=== PATIENT | male | born 1965 | race Caucasian/White ===

== ENCOUNTER → 2017-12-25 15:12 | Outpatient (CLI) | payer OTHER, SELFPAY ==
--- NOTE | 2017-12-25 15:22 | US_ITS ---
US extremity LT limited COMPARISON: None HISTORY: Palpable area on anterior sole of foot TECHNIQUE: Targeted ultrasound over the area of interest FINDINGS: There Is a small oval hypoechoic lesion measuring 0.7 by point to centimeters within the subcutaneous tissues of the foot. Possibly this represents a prominent callus or could represent a small resolving hematoma or seroma. No other abnormalities noted. IMPRESSION: Small hypoechoic lesion as described, if symptoms persist or worsen possibly MRI scan left which be considered
== END ==
PROVIDERS: PCP Family Medicine; Visit Provider Family Medicine
DX: R22.42 Localized swelling, mass and lump, left lower limb (principal)
CPT/HCPCS: 76882

== ENCOUNTER → 2018-01-07 14:28 | Outpatient (CLI) | payer OTHER, SELFPAY | PROVIDERS: PCP Family Medicine; Visit Provider Family Medicine | DX: R22.42 Localized swelling, mass and lump, left lower limb (principal) ==

== ENCOUNTER → 2018-01-27 07:01 | Outpatient (CLI) | payer OTHER, SELFPAY ==
[2018-01-27 14:07] LABS: Alanine Aminotransferase 32 U/L (12-78); Albumin Level 4.2 gm/dL (3.4-5.0); Alkaline Phosphatase 115 U/L (46-116); Aspartate Amino Transferase 12 U/L (15-37); Bilirubin,Direct 0.1 mg/dL (0.0-0.2); Bilirubin,Indirect 0.4 mg/dL (0.0-0.9); Bilirubin,Total 0.5 mg/dL (0.2-1.0); Chol/HDL Ratio 7.9 (1-3.5); Cholesterol 229 mg/dL (140-200); HDL Cholesterol 29 mg/dL (27-67); Total Protein,Serum 7.7 gm/dL (6.4-8.2)
[2018-01-27 14:14] LABS: Triglycerides 734 mg/dL (30-200)
== END ==
PROVIDERS: Visit Provider Internal Medicine
DX: I25.10 Atherosclerotic heart disease of native coronary artery without angina pectoris (principal); E11.9 Type 2 diabetes mellitus without complications; E78.5 Hyperlipidemia, unspecified; I27.20 Pulmonary hypertension, unspecified
CPT/HCPCS: 36415; 80061; 80076

== ENCOUNTER → 2018-09-07 13:44 | Outpatient (CLI) | payer OTHER, SELFPAY ==
[2018-09-07 15:06] LABS: Basophils # 0.1 K/mm3 (0-0.2); Basophils % 0.6 % (0.1-2.0); Eosinophils # 0.1 K/mm3 (0.0-0.4); Eosinophils % 0.7 % (0.1-12.0); Hematocrit 46.9 % (42.0-52.0); Hemoglobin 15.5 g/dL (14.1-18.0); Lymphocytes % 10.8 % (10-50); Mean Corpuscular HGB Conc 33.1 g/dL (31.8-35.4); Mean Corpuscular Hemoglobin 29.6 pg (27.0-31.2); Mean Corpuscular Volume 89.5 fl (80-94); Mean Platelet Volume 8.2 fl (7.4-10.4); Monocytes # 1.1 K/mm3 (0.1-1.0); Neutrophils # 14.7 K/mm3 (1.8-7.8); Neutrophils % 81.9 % (37.0-80.0); Platelet Count 254 K/mm3 (142-424); Red Blood Count 5.24 M/mm3 (4.60-6.20); Red Cell Distribution Width 13.8 % (11.5-17.5)
[2018-09-07 15:15] LABS: Anion Gap 18.8 mEq/L (5-15); Blood Urea Nitrogen 27 mg/dL (7-18); Calcium 9.2 mg/dL (8.5-10.1); Carbon Dioxide 20 mmol/L (21.0-32.0); Chloride 95 mmol/L (98-107); Creatinine,Serum 1.91 mg/dL (0.70-1.30); Estimated Glomerular Filt Rate 37 ml/min (>60); GFR (African American) 45 ML/MIN (>60); Glucose 233 mg/dL (74-106); MANUAL DIFFERENTIAL MANUAL DIFFERENTIAL (MANUAL DIFF); Potassium 4.8 mmoL/L (3.5-5.1); Sodium 129 mmol/L (136-145)
[2018-09-07 19:33] LABS: Lymphocytes % 11 % (10-50); Monocytes % 11 % (2-9); Neutrophils % 78 % (42-76); Platelet Estimate Normal; RBC Morphology Normal; Total Cells Counted 100
== END ==
PROVIDERS: Visit Provider Surgery
DX: L05.91 Pilonidal cyst without abscess (principal)
CPT/HCPCS: 36415; 80048; 85007; 85025; 93005

== ENCOUNTER 2018-09-10 08:56 | Outpatient (CLI) | payer OTHER, SELFPAY | END 2018-09-10 09:15 | disposition home or self-care (01) | LOC: INF 08:56 | PROVIDERS: Visit Provider Surgery | DX: Z48.01 Encounter for change or removal of surgical wound dressing (principal); L05.01 Pilonidal cyst with abscess | CPT/HCPCS: G0463 ==

== ENCOUNTER 2018-09-11 08:13 | Outpatient (CLI) | payer OTHER, SELFPAY ==
[2018-09-11 08:29] VITALS: BP 88/64; PULSE 71; RESP 16; O2SAT 97; BMI 24.3
== END 2018-09-11 08:50 | disposition home or self-care (01) ==
LOC: INF 08:14
PROVIDERS: PCP Family Medicine; Visit Provider Surgery
DX: Z48.01 Encounter for change or removal of surgical wound dressing (principal); L05.01 Pilonidal cyst with abscess
CPT/HCPCS: G0463

== ENCOUNTER → 2018-11-08 16:08 | Outpatient (CLI) | payer OTHER, SELFPAY ==
--- NOTE | 2018-11-08 16:20 | XR_ITS ---
EXAM: XR lumbar spine 6V w bending HISTORY: Low back pain ORDERING PHYSICIAN: Michael Stokes MD PATIENT AGE: 52 years COMPARISON: None FINDINGS: There is overall normal lordotic curvature. There are defects of the pars interarticularis at the L5-S1 level bilaterally. There is a second degree spondylolisthesis of L5 on S1 with a couple millimeters of forward motion of L5 on S1 on the flexion view compared with the extension view. All lumbar vertebrae appear intact and disc spaces are well maintained throughout. There is minimal anterior ossific spurring at the L1-2 level. SI joints are normal. There is minimal scattered arteriosclerotic calcification of the abdominal aorta. IMPRESSION: Bilateral spondylolysis L5-S1 with second degree spondylolisthesis of L5 on S1 with slight motion demonstrated on the flexion and extension views of L5 on S1.
== END ==
PROVIDERS: PCP Family Medicine; Visit Provider Family Medicine
DX: M54.16 Radiculopathy, lumbar region (principal)
CPT/HCPCS: 72114

== ENCOUNTER → 2019-01-19 07:38 | Outpatient (CLI) | payer OTHER, SELFPAY ==
--- NOTE | 2019-01-19 07:48 | MR_ITS ---
MR lumbar spine wo con, MR 3-d myelogram/MRCP HISTORY: Bilateral leg and feet pain 6-8 months. PT states the main pain is in both calf area. Pain when standing or walking long periods. . ITS.REASON: LUMBAR RADICULOPATHY ORDERING PHYSICIAN: Michael Stokes MD PATIENT AGE: 53 years Comparison: X-RAY 11/08/18. TECHNIQUE: Standard multiplanar multiecho sequences are performed without contrast. 3-D MIP and myelographic images are also rendered and reviewed FINDINGS: The spinal cord ends at the L1 level. Multilevel degenerative disc disease is present. T11-T12, T12-L1, and L1-L2 shows mild endplate irregularity with Schmorl's nodes. There is mild bulging of the disc at L1-L2 L2-L3: Unremarkable. L3-L4: Unremarkable. L4-5: Minimal bulging disc. L5-S1: There is grade 1 spondylitic spondylolisthesis of L5 on S1 of 10 mm with degenerative disc disease and bulging disc at that level with moderate bilateral foraminal narrowing facet hypertrophic change. No disc herniation or canal stenosis. IMPRESSION: 1. There is grade 1 spondylitic spondylolisthesis of L5 on S1 of 10 mm with degenerative disc disease and bulging disc at that level with moderate bilateral foraminal narrowing with facet hypertrophic change 2. Lumbar spondylosis. Please see above for detailed description at each level
== END ==
PROVIDERS: PCP Family Medicine; Visit Provider Family Medicine
DX: M54.16 Radiculopathy, lumbar region (principal)
CPT/HCPCS: 72148; 76376

== ENCOUNTER → 2020-02-17 12:44 | Outpatient (CLI) | payer OTHER, SELFPAY ==
--- NOTE | 2020-02-17 13:07 | XR_ITS ---
PROCEDURE: XR ACUTE ABDOMEN SERIES CLINICAL INDICATION: ABD DISTENTION,RLQ PAIN COMPARISON: CXR CHEST(2 VIEWS-NOT PORTABLE) from 02/24/2017 FINDINGS: There is an atelectatic like infiltrate or linear scar within the right upper lobe. Left lung field, cardiac silhouette, soft tissues, and bony structures are unremarkable. There are no abnormal masses or calcifications. Bowel gas pattern is unremarkable. Vascular calcifications are noted. There is no free air. IMPRESSION: Scar or linear atelectasis within the right upper lobe, unremarkable bowel gas pattern Dictated by: Christian Niño 02/17/2020 13:35 Electronically signed by Christian Niño in [place] 02/17/2020 13:35
[2020-02-17 13:18] LABS: Basophils # 0.2 K/mm3 (0-0.2); Lymphocytes # 3.4 K/mm3 (0.7-4.5)
[2020-02-17 14:00] LABS: Chloride 104 mmol/L (98-107); Potassium 4.7 mmoL/L (3.5-5.1); Sodium 133 mmol/L (136-145)
[2020-02-17 14:02] LABS: Amylase 39 U/L (30-110)
[2020-02-17 14:03] LABS: Alanine Aminotransferase 26 U/L (12-78); Alkaline Phosphatase 73 U/L (38-126); Anion Gap 11.7 mEq/L (5-15); Aspartate Amino Transferase 28 U/L (17-59); Bilirubin,Total 0.7 mg/dl (0.2-1.3); Blood Urea Nitrogen 15 mg/dl (9-20); Calcium 9.4 mg/dl (8.4-10.2); Carbon Dioxide 22 mmol/L (22.0-30.0); Estimated Glomerular Filt Rate 53 ml/min (>60); GFR (African American) 64 ML/MIN (>60); Glucose 117 mg/dl (74-100); Lipase 100 U/L (23-300)
[2020-02-17 14:04] LABS: Albumin Level 4.1 g/dl (3.5-5.0); Albumin/Globulin Ratio 1.4 (1.1-1.8); Globulin 2.9 g/dL (1.3-3.2)
[2020-02-17 14:17] LABS: Basophils % 1.1 % (0.1-2.0); Eosinophils % 6.7 % (0.1-12.0); Lymphocytes % 22.8 % (10-50); Mean Corpuscular HGB Conc 34.8 g/dL (31.8-35.4); Mean Corpuscular Hemoglobin 30.4 pg (27.0-31.2); Mean Corpuscular Volume 87.5 fl (80-94); Mean Platelet Volume 8.3 fl (7.4-10.4); Monocytes # 1.3 K/mm3 (0.1-1.0); Monocytes % 8.7 % (1.7-9.3); Neutrophils # 9.1 K/mm3 (1.8-7.8); Neutrophils % 60.8 % (37.0-80.0); Platelet Count 225 K/mm3 (142-424); Red Blood Count 6.06 M/mm3 (4.60-6.20); Red Cell Distribution Width 13.7 % (11.5-17.5)
[2020-02-17 14:18] LABS: Hemoglobin 18.4 g/dL (14.1-18.0)
[2020-02-17 14:20] LABS: MANUAL DIFFERENTIAL MANUAL DIFFERENTIAL (MANUAL DIFF)
[2020-02-17 14:57] LABS: Eosinophils % 6 % (0-3); Lymphocytes % 29 % (10-50); Monocytes % 9 % (2-9); Neutrophils % 56 % (42-76); Total Cells Counted 100
[2020-02-17 14:58] LABS: Platelet Estimate Normal; RBC Morphology Normal
== END ==
PROVIDERS: Visit Provider Family Medicine
DX: R10.31 Right lower quadrant pain (principal); R14.0 Abdominal distension (gaseous)
CPT/HCPCS: 36415; 74021; 80053; 82150; 83690; 85007; 85025

== ENCOUNTER → 2020-02-27 07:41 | Outpatient (CLI) | payer OTHER, SELFPAY ==
--- NOTE | 2020-02-27 | US_ITS ---
PROCEDURE: US ABDOMEN COMPLETE CLINICAL INDICATION: ABDOMINAL DISTENSION Abdominal distension with nausea and vomiting COMPARISON: No exams were available for comparison FINDINGS: PANCREAS: Unremarkable. No obvious mass or abnormal fluid collection. No ductal dilatation LIVER: Increased echogenicity of the liver suggesting hepatic steatosis. No focal liver lesion. There is appropriate direction of blood flow within non dilated portal vein. RIGHT KIDNEY: Unremarkable. Normal size and echogenicity. No hydronephrosis LEFT KIDNEY: There is a small exophytic cyst along the upper pole of the left kidney at 15 mm GALLBLADDER: No gallstones, gallbladder wall thickening, pericholecystic fluid, or biliary dilatation. AORTA: No evidence of aneurysmal dilatation. SPLEEN: Unremarkable. Normal size and echogenicity ASCITES: None demonstrated. IMPRESSION: Fatty liver. Small left renal cyst Otherwise negative Dictated by: Nelson Gomes MD 02/27/2020 16:07 Electronically signed by Nelson Gomes MD in [facility] 02/27/2020 16:07
== END ==
PROVIDERS: PCP Family Medicine; Visit Provider Family Medicine
DX: R14.0 Abdominal distension (gaseous) (principal)
CPT/HCPCS: 76700

== ENCOUNTER → 2020-06-28 10:33 | Outpatient (CLI) | payer OTHER, SELFPAY ==
--- NOTE | 2020-06-28 10:37 | US_ITS ---
APPROVED REPORT Exam Type: Ankle to Brachial Index Bakery Sales Clerk: Erum Fragoso RT(R) Indications Claudication: Bilaterally Pulselessness Current Smoker CAD Risk Factors Hypertension Hyperlipidemia Diabetes Current Smoker Pressures/Indices Right Indices Left Indices Brachial 122.00 mmHg Brachial 119.00 mmHg Low Thigh 202.00 mmHg 1.66 Low Thigh 113.00 mmHg 0.93 Calf 110.00 mmHg 0.90 Calf 94.00 mmHg 0.77 Ankle(PT) 128.00 mmHg 1.05 Ankle(PT) 89.00 mmHg 0.73 Ankle(DP) 118.00 mmHg 0.97 Ankle(DP) 84.00 mmHg 0.69 Digit 73.00 mmHg 0.60 Digit 56.00 mmHg 0.46 Findings RT JOSE=1.1 LT JOSE=0.7 RT TBI=0.6 LT TBI=0.5 Abnormal waveforms LLE Diminished pulses LLE Conclusion RT JOSE=1.1 LT JOSE=0.7 RT TBI=0.6 LT TBI=0.5 Abnormal waveforms LLE Diminished pulses LLE Moderate arterial disease on the left Electronically signed by : Nelson Gomes MD 06/28/2020 15:56:27
== END ==
PROVIDERS: PCP Family Medicine; Visit Provider Family Medicine
DX: I73.9 Peripheral vascular disease, unspecified (principal); I65.23 Occlusion and stenosis of bilateral carotid arteries; E11.65 Type 2 diabetes mellitus with hyperglycemia; F17.210 Nicotine dependence, cigarettes, uncomplicated; Z79.84 Long term (current) use of oral hypoglycemic drugs
CPT/HCPCS: 93923

== ENCOUNTER 2021-09-22 18:11 | Emergency (ER) | payer OTHER, SELFPAY ==
[2021-09-22] VITALS (7 sets, daily range): BP systolic 94–111; BP diastolic 66–78; PULSE 73–106; RESP 15–16; TEMP 36.8; O2SAT 93–100; BMI 23.6
--- NOTE | 2021-09-22 18:27 | PC.NURSE ---
Covid Swab collected and sent to the lab
[2021-09-22 18:46] LABS: Coronavirus 19, PCR Not Detected (NotDetected); Influenza A, PCR Not Detected (NotDetected); Influenza B, PCR Not Detected (NotDetected)
--- NOTE | 2021-09-22 18:53 | HMH.EDGENADL ---
ED Disposition Clinical Impression: Upper respiratory infection Qualifiers: URI type: unspecified URI Qualified Code(s): J06.9 - Acute upper respiratory infection, unspecified Nausea & vomiting Qualifiers: Vomiting type: unspecified Qualified Code(s): R11.2 - Nausea with vomiting, unspecified Disposition: Home, Self-Care Condition on Discharge: Good Instructions: DI for Acute Bronchitis Additional Instructions: Please continue supportive care at home including Tylenol, ibuprofen and Zofran for nausea/vomiting. Continue to drink plenty of fluids. If your condition worsens or any concerning symptoms arise, please return to the emergency department for reassessment. Otherwise, please follow-up with your doctor next week. Referrals: Michael Stokes MD [Primary Care Provider] - - Critical Care Critical Care Time: No Attestation: On 09/22/21, the high probability of a clinically significant, sudden or life threatening deterioration of the following system(s) required my full and direct attention, intervention and personal management. The time I documented below is in addition to time spent performing reported procedures but includes the following listed in this critical care notation. Medical Decision Making - Medical Records Medical records reviewed: Yes: I reviewed the patient's medical records. - Javier Inquiry Pt receiving controlled substance: No Vital Signs: 09/22/21 18:11 09/22/21 19:57 09/22/21 19:58 Temperature 98.2 F Temperature Source Oral Pulse Rate 83 83 Pulse Rate [Right Radial] 106 H Respiratory Rate 15 Blood Pressure [Right Arm] 111/78 Blood Pressure Mean [Right Arm] 89 Blood Pressure Source [Right Arm] Automatic Cuff Blood Pressure Position [Right Arm] Sitting 02 Sat by Pulse Oximetry 100 Oxygen Delivery Method Room Air - Lab Data Lab results reviewed: Yes: I reviewed the patient's lab results. Lab Results 09/22/21 18:21: SARS-CoV-2 (PCR) Not detected, Influenza A Untype (PCR) Not detected, Influenza Type B (PCR) Not detected 09/22/21 19:42: WBC 10.1, RBC 6.10, Hgb 17.5, Hct 54.1 H, MCV 88.7, MCH 28.7, MCHC 32.4, RDW 13.5, Plt Count 244, MPV 8.6, Neut % (Auto) 56.2, Lymph % (Auto) 27.0, [place] % (Auto) 9.1, Eos % (Auto) 5.5, Baso % (Auto) 2.2 H, Neut # (Auto) 5.7, Lymph # (Auto) 2.7, [place] # (Auto) 0.9, Eos # (Auto) 0.6 H, Baso # (Auto) 0.2 09/22/21 19:42: Sodium 132 L, Potassium 4.4, Chloride 99, Carbon Dioxide 23, Anion Gap 14.4, BUN 17, Creatinine 1.40 H, Estimated Creat Clear 54, Estimated GFR 52 L, Est GFR ( Amer) 63, Glucose 118 H, Calcium 10.2, Total Bilirubin 0.6, AST 22, ALT 15, Alkaline Phosphatase 70, Total Protein 7.6, Albumin 4.1, Globulin 3.5 H, Albumin/Globulin Ratio 1.2 09/22/21 19:42: Lactate 1.0 Result diagrams: 09/22/21 19:42 09/22/21 19:42 Orders (Tests/Meds): ED MEDICATIONS Generic Name Dose Route Start Last Admin Trade Name Freq PRN Reason Stop Dose Admin Lactated Ringer's 500 mls @ 999 mls/hr 09/22/21 19:00 09/22/21 19:34 Lactated Ringer's 1000 Ml Bag IV 09/22/21 19:30 999 mls/hr .Q31M BRITT Administration Discontinued Medications Generic Name Dose Route Start Last Admin Trade Name Freq PRN Reason Stop Dose Admin Albuterol/Ipratropium 3 ml 09/22/21 19:42 09/22/21 19:57 Ipratropium/Albuterol 3 Ml Neb 09/22/21 19:43 3 ml ONCE ONE Administration Ondansetron HCl 4 mg 09/22/21 19:00 09/22/21 19:34 Ondansetron 4mg/2ml Vial IV 09/22/21 19:01 4 mg ONCE ONE Administration Medical Decision Narrative: Chris is a 55-year-old male presenting with a chief complaint of congestion, intermittent headache at home, nausea, vomiting and abdominal cramping. Differential diagnosis includes, but is not limited to, COVID-19, influenza, viral gastroenteritis, COPD exacerbation, other. On initial exam, patient is hemodynamically stable but mildly tachycardic. He has SPO2 saturations of 100% on room air and
[2021-09-22 19:59] LABS: Chloride 99 mmol/L (98-107); Potassium 4.4 mmoL/L (3.5-5.1); Sodium 132 mmol/L (136-145)
[2021-09-22 20:02] LABS: Alanine Aminotransferase 15 U/L (12-78); Albumin Level 4.1 g/dl (3.5-5.0); Albumin/Globulin Ratio 1.2 (1.1-1.8); Alkaline Phosphatase 70 U/L (38-126); Anion Gap 14.4 mEq/L (5-15); Aspartate Amino Transferase 22 U/L (17-59); Bilirubin,Total 0.6 mg/dl (0.2-1.3); Blood Urea Nitrogen 17 mg/dl (9-20); Calcium 10.2 mg/dl (8.4-10.2); Carbon Dioxide 23 mmol/L (22.0-30.0); Creatinine Clearance Estimated 54 mL/min (50-200); Estimated Glomerular Filt Rate 52 ml/min (>60); GFR (African American) 63 ML/MIN (>60); Globulin 3.5 g/dL (1.3-3.2); Glucose 118 mg/dl (74-100); Total Protein,Serum 7.6 g/dl (6.3-8.2)
[2021-09-22 20:04] LABS: Basophils # 0.2 K/mm3 (0-0.2); Basophils % 2.2 % (0.1-2.0); Eosinophils # 0.6 K/mm3 (0.0-0.4); Eosinophils % 5.5 % (0.1-12.0); Hematocrit 54.1 % (42.0-52.0); Hemoglobin 17.5 g/dL (14.1-18.0); Lymphocytes # 2.7 K/mm3 (0.7-4.5); Mean Corpuscular HGB Conc 32.4 g/dL (31.8-35.4); Mean Corpuscular Hemoglobin 28.7 pg (27.0-31.2); Mean Corpuscular Volume 88.7 fl (80-94); Mean Platelet Volume 8.6 fl (7.4-10.4); Monocytes # 0.9 K/mm3 (0.1-1.0); Monocytes % 9.1 % (1.7-9.3); Neutrophils # 5.7 K/mm3 (1.8-7.8); Neutrophils % 56.2 % (37.0-80.0); Platelet Count 244 K/mm3 (142-424); Red Cell Distribution Width 13.5 % (11.5-17.5); White Blood Count 10.1 K/mm3 (4.8-10.8)
== END 2021-09-22 20:52 | disposition home or self-care (01) ==
PROVIDERS: Emergency Provider Emergency Medicine; PCP Family Medicine
DX: U07.1 COVID-19 (principal); J06.9 Acute upper respiratory infection, unspecified; I25.10 Atherosclerotic heart disease of native coronary artery without angina pectoris; E11.9 Type 2 diabetes mellitus without complications; K21.9 Gastro-esophageal reflux disease without esophagitis; E78.5 Hyperlipidemia, unspecified; I10 Essential (primary) hypertension; F17.210 Nicotine dependence, cigarettes, uncomplicated
CPT/HCPCS: 80053; 83605; 85025; 96365; 99283; C9803; J2405; U0003; U0005

== ENCOUNTER → 2021-09-24 16:47 | Outpatient (CLI) | payer OTHER, SELFPAY ==
[2021-09-24 17:39] LABS: Theophylline 5.3 ug/ml (10-20)
== END ==
PROVIDERS: PCP Internal Medicine; Visit Provider Internal Medicine
DX: J06.9 Acute upper respiratory infection, unspecified (principal)
CPT/HCPCS: 80198

== ENCOUNTER → 2021-11-12 15:36 | Outpatient (CLI) | payer OTHER, SELFPAY ==
--- NOTE | 2021-11-12 15:46 | ECG_ITS ---
APPROVED REPORT Exam: Resting ECG HR:83 bpm ECG Measurements Heart Rate 83 AXES VA 140 P 66 QRSd 102 QRS 75 QT 333 T 75 QTc 373 Conclusion SINUS RHYTHM NORMAL ECG Electronically signed by : Camden Hernandez MD 12/09/2021 16:10:10
== END ==
PROVIDERS: PCP Internal Medicine; Visit Provider Internal Medicine
DX: I25.10 Atherosclerotic heart disease of native coronary artery without angina pectoris (principal); E11.59 Type 2 diabetes mellitus with other circulatory complications; Z79.84 Long term (current) use of oral hypoglycemic drugs
CPT/HCPCS: 93005

== ENCOUNTER → 2021-11-20 08:10 | Outpatient (CLI) | payer OTHER, SELFPAY ==
--- NOTE | 2021-11-20 08:13 | CT_ITS ---
FINAL REPORT CLINICAL HISTORY: . nicotine dependence, 1 1/2 packs a day for 27 to 28 years COMPARISON: April 09, 2017 FINDINGS: Low-Dose Chest CT CTDI vol (mGy): 2.90 DLP (mGy-cm): 98.73 Axial images were obtained from the lung apex to the mid abdomen by computed tomography. Low-dose protocol was utilized. FINDINGS: CHEST: There is no axillary adenopathy. There is no hilar or mediastinal adenopathy. The heart is proper size. There is a 4.2 cm ascending aortic aneurysm which is stable. Note is made of mild gynecomastia. There is no pericardial or pleural effusion. Limited images of the upper abdomen are unremarkable. Lung window images demonstrate mild scarring. There is calcified granuloma in the right lung base. There is a 2 mm nodule in the right upper lobe, well seen on image 28. There is a stable 2 mm left upper lobe nodule, well seen on image 17. There is a 3 mm nodule at the minor fissure which is likely an intra fissural lymph node. There is a stable 2 mm left lower lobe nodule, well seen on image 56. IMPRESSION: Bilateral pulmonary nodules as described. Lung RADS category 2. Recommend 12 month follow-up low-dose chest CT. Reviewed, Interpreted and Dictated by Derian Randle III, MD Transcribed by Fany Hamilton Authenticated by Derian Randle III, MD on 11/20/2021 10:45:06 AM [facility]
== END ==
PROVIDERS: PCP Internal Medicine; Visit Provider Internal Medicine
DX: Z87.891 Personal history of nicotine dependence (principal); Z12.2 Encounter for screening for malignant neoplasm of respiratory organs
CPT/HCPCS: 71271

== ENCOUNTER → 2021-11-21 07:12 | Outpatient (CLI) | payer OTHER, SELFPAY ==
--- NOTE | 2021-11-21 | CA_ITS ---
APPROVED REPORT Exam: Pharmacologic Technologist: Sri Louis, Ht: 5 ft 5 in Wt: 137 lbs BSA: 1.68 m2 HR: 88 bpm BP: 89/57 mmHg Rhythm: NSR, SLOW R WAVE PROGRESSION Medical History Medical History: HTN, Hyperlipidemia, Diabetes Medications: Aspirin,,,,, Gabapentin,,,,, Carvedilol,,,,, Glipizide,,,,, Duoneb,,,,, Albuterol,,,,, Theophylline,,,,, Prednisone,,,,, SpirOnALACTONE,,,,, Trelegy,,,,, EMpagliflozin,,,,, Allergies: PENICILLIN Cardiac Risk Factors: HTN, Hyperlipidemia, Diabetes , Smoking Stress Test Details Test: LEXISCAN HR Resting HR: 84 bpm Max Heart Rate (APMHR): 164.119626 bpm Max HR Achieved: 99 bpm Target HR (85% APMHR): 139.171835 bpm % of APMHR: 60.37 Recovery HR: 85 bpm BP Resting BP: 97/66 mmHg Max BP: 100/60 mmHg Recovery BP: 100.0/60.0 mmHg ECG Resting ECG: NSR, SLOW R WAVE PROGRESSION Clinical Exercise duration: 04:01 min Highest Stage Achieved: Stress ECG Conclusion PT HAD SOA, HEAD DISCOMFORT, MILD NAUSEA. NO CP. BRIEF BRADYCARDIA WITH INJECTION. RARE PVC. NO SIGNIFICANT CHANGES. UNREMARKABLE LEXISCAN STRESS. MYOVIEW IMAGES REPORTED SEPARATELY. Test Summary RECOVERY 03:32 . . 87 . 100/ 60 . . Stage 1 01:00 . . 89 . . . . Stage 2 01:00 . . 98 . 98/ 65 . . Stage 3 01:00 . . 95 . 90/ 64 . . Stage 4 01:00 . . 90 . 85/ 61 . . Stage 4 01:01 . . 90 . 85/ 61 . Stop exercise at 04:01 RECOVERY 01:00 . . 93 . 84/ 58 . . RECOVERY 02:00 . . 88 . 90/ 62 . . RECOVERY 03:00 . . 89 . 100/ 60 . . RECOVERY 03:32 . . 87 . 100/ 60 . . Electronically signed by : Jeffery Tinsley MD 11/22/2021 13:29:10
--- NOTE | 2021-11-21 07:12 | NM_ITS ---
APPROVED REPORT Exam: Nuclear Stress Test Indication: short of breath Patient Location: Outpatient Stress Tech: Sri Louis ME Tech:Esther Randolph RAPHAEL RT(R)(N) Ht: 5 ft 5 in Wt: 145 lbs HR: 88 bpm BP: 89/57 mmHg BSA: 1.73 m2 BMI: 24.1 Procedure: Patient received a 0.4 mg of intravenous Lexiscan, resting heart rate 88 bpm, resting blood pressure 89/57 mmHg, with Lexiscan maximum heart rate achived was 98 bpm which is Less than 85 % of the maximum predicted heart rate and blood pressure was 98/65 mmHg. With Lexiscan, patient denied any complaint of chest pain. Electrocardiogram Resting electrocardiogram shows sinus rhythm, with Lexiscan there is less than 1.[address] segment depression noted from the baseline EKG. The EKG portion of the Lexiscan is nondiagnostic. Cardiac Stress and Resting SPECT Images: Cardiac Stress and Resting SPECT images were obtained using technetium 99m Myoview 30.9 mCi stress and 10.96 mCi at rest. Gated SPECT analysis of segmental wall motion and calculation of the ejection fraction also done. Prone images were also obtained. Cardiac stress and resting SPECT images show uniform myocardial activity without segmental perfusion abnormality, computer derived ejection fraction is 54% with no regional wall motion abnormality, right ventricle is normal size and contractility. Conclusion: 1. The EKG portion of the Lexiscan is nondiagnostic. 2. No scintigraphic evidence of reversible ischemia seen, compared to ejection fraction 54% with no regional wall motion abnormality, right ventricle is normal size and contractility. 3. Normal Lexiscan Myoview study. Electronically signed by : Jeffery Tinsley MD 11/22/2021 13:31:44
--- NOTE | 2021-11-21 08:55 | CA_ITS ---
APPROVED REPORT EXAM: Comprehensive 2D, Doppler, and color-flow Echocardiogram Mechanical Systems Control Engineer: Elizabeth Giraldo RVT Ht: 5 ft 5 in Wt: 137lbs BSA: 1.68 BP: 99/72 mmHg Indications: soa,dd,phtn,cad,chf,gerd,copd,dm,htn,hld 2D Dimensions LVOT 2.34 cm (M/F) 1.5-2.5 LA Volume 11.30 mL LA Volume Index 6.72 mL/m2 (M/F) 16-34 M-Mode Dimensions RVDd 2.01 cm (0.9-2.6) LA Diam 3.51 cm (1.9-4.0) LVDd 5.01 cm (3.5-5.7) Ao Diam 2.52 cm (2.0-3.7) LVDs 3.15 cm (3.5-5.7) IVSd 0.64 cm (0.6-1.1) PWd 0.76 cm (0.6-1.1) EF (Teich) 66.80% FS 37.10% EDV (Teich) 118.80 mL TAPSE 1.14 (<1.7) ESV (Teich) 39.40 mL LV Diastology E Decel Time 150.00 (160-240 msec) E/A Ratio 0.8 MED E' 6.00 (< 7 cm/sec) E'/MED E' Ratio 9.72 (>14) LAT E' 8.30 (<10 cm/sec) E/LAT E' Ratio 7.02 (>14) Aortic Valve LVOT Max 84.00 (70-110 cm/s) LVOT VTI 16.19 cm AoV Peak Jose Antonio. 178.00 (50-130 cm/s) AO Peak GR. 14.30 mmHg AO Mean GR. 7.90 (<5 mmHg) AO VTI 34.87 (18-25 cm) NADIA (VTI) 2.00 (2.5-4.5 cm2) Mitral Valve MV E Max Jose Antonio. 58.00 (40-130 cm/s) MV A Velocity 70.00 (40-130 cm/s) E/A Ratio 0.83 MV Decel. Time 150.00 (160-240 ms) MV PHT 44.00 ms Pulmonary Valve PV Peak Velocity 69.00 (50-150 cm/s) Left Ventricle Left atrium is mildly enlarged, left ventricle is normal size, mild concentric left ventricular hypertrophy, estimated ejection fraction 55% with no regional wall motion abnormality, grade 1 diastolic dysfunction seen without tissue Doppler evidence of raise left atrial pressure. Right Ventricle Right atrium and right ventricle are normal size and contractility. Aortic Valve Aortic valve is thickened and calcified leaflet mobility is not well visualized, degree of aortic stenosis is difficult to calculate from the study. There is no significant aortic insufficiency. Aortic stenosis appears to be mild. Mitral Valve Mitral valve leaflets are minimally thickened, there is mild mitral regurgitation. Tricuspid Valve Tricuspid grossly normal, there is mild tricuspid regurgitation, tricuspid regurgitation jet velocity is inadequate for calculation of the right ventricular systolic pressure. Pulmonic Valve Pulmonic valve is poorly visualized. Great Vessels Aortic root appears to be mildly enlarged. Inferior vena cava is poorly visualized. Pericardium No significant pericardial effusion noted. Conclusion 1. Technically difficult study. Normal left ventricular size, mild concentric left ventricular hypertrophy, visually estimated ejection fraction 55% with no regional wall motion abnormality, grade 1 diastolic dysfunction seen without tissue Doppler evidence of raise left atrial pressure. 2. Thickened and calcified aortic valve with degree of aortic stenosis difficulties ascertain from this study is likely mild, there is no significant aortic insufficiency. 3. Mild mitral and tricuspid regurgitation. 4. No significant pericardial effusion noted. 5. Inferior vena cava is poorly visualized. Electronically signed by : Jeffery Tinsley MD 11/22/2021 14:59:29
== END ==
PROVIDERS: PCP Internal Medicine; Visit Provider Physician Assistant
DX: R06.00 Dyspnea, unspecified (principal); I25.10 Atherosclerotic heart disease of native coronary artery without angina pectoris; I27.20 Pulmonary hypertension, unspecified; E11.8 Type 2 diabetes mellitus with unspecified complications; E78.49 Other hyperlipidemia; F17.200 Nicotine dependence, unspecified, uncomplicated; I51.89 Other ill-defined heart diseases
CPT/HCPCS: 78452; 93017; 93306; A9502; J2785

== ENCOUNTER 2022-02-06 10:43 | Emergency (ER) | payer OTHER, SELFPAY ==
[2022-02-06] VITALS (8 sets, daily range): BP systolic 95–107; BP diastolic 55–64; PULSE 80–95; RESP 17–18; TEMP 36.7; O2SAT 88–94; BMI 23.8
--- NOTE | 2022-02-06 10:52 | ECG_ITS ---
APPROVED REPORT Exam: Resting ECG HR:87 bpm ECG Measurements Heart Rate 87 AXES SD 135 P 63 QRSd 94 QRS 83 QT 333 T 62 QTc 378 Conclusion SINUS RHYTHM NORMAL ECG UNCONFIRMED REPORT Electronically signed by : Michael Kenny MD 02/07/2022 17:31:37
--- NOTE | 2022-02-06 10:54 | HMH.EDGENADL ---
ED Disposition Clinical Impression: Pneumonia Qualifiers: Pneumonia type: due to unspecified organism Laterality: right Lung location: upper lobe of lung Qualified Code(s): J18.9 - Pneumonia, unspecified organism Disposition: Home, Self-Care Condition on Discharge: Good Instructions: Pneumonia-Adult Additional Instructions: Take antibiotics as prescribed. Follow up with your PCP as soon as possible. If worsening of symptoms or not seeing improvement after a few days on antibiotics, return to the ED for further evaluation. Referrals: Camden Hernandez MD [Primary Care Provider] - Time of Disposition: 12:44 - Critical Care Critical Care Time: No Attestation: On , the high probability of a clinically significant, sudden or life threatening deterioration of the following system(s) required my full and direct attention, intervention and personal management. The time I documented below is in addition to time spent performing reported procedures but includes the following listed in this critical care notation. Medical Decision Making - Medical Records Medical records reviewed: Yes: I reviewed the patient's medical records. - Javier Inquiry Pt receiving controlled substance: No Vital Signs: 02/06/22 10:44 02/06/22 11:01 02/06/22 11:22 Temperature 98.0 F Temperature Source Oral Pulse Rate 81 Pulse Rate [Right Radial] 95 H Respiratory Rate 18 17 Blood Pressure 104/63 L Blood Pressure [Right Arm] 95/55 L Blood Pressure Mean 77 Blood Pressure Mean [Right Arm] 68 Blood Pressure Source [Right Arm] Automatic Cuff Blood Pressure Position [Right Arm] Sitting 02 Sat by Pulse Oximetry 94 L 88 L 92 L Oxygen Delivery Method Room Air Room Air Nasal Cannula Oxygen Flow Rate (LPM) 2 02/06/22 11:30 02/06/22 12:00 Temperature Temperature Source Pulse Rate 80 80 Pulse Rate [Right Radial] Respiratory Rate 18 18 Blood Pressure 98/60 L 107/64 L Blood Pressure [Right Arm] Blood Pressure Mean 70 80 Blood Pressure Mean [Right Arm] Blood Pressure Source [Right Arm] Blood Pressure Position [Right Arm] 02 Sat by Pulse Oximetry 91 L 91 L Oxygen Delivery Method Nasal Cannula Nasal Cannula Oxygen Flow Rate (LPM) 2 - Lab Data Lab results reviewed: Yes: I reviewed the patient's lab results. Lab Results 02/06/22 11:00: WBC 15.1 H, RBC 5.84, Hgb 17.4, Hct 50.3, MCV 86.2, MCH 29.8, MCHC 34.5, RDW 14.2, Plt Count 233, MPV 8.4, Neut % (Auto) 76.6, Lymph % (Auto) 9.7 L, [place] % (Auto) 6.4, Eos % (Auto) 5.5, Baso % (Auto) 1.8, Neut # (Auto) 11.6 H, Lymph # (Auto) 1.5, [place] # (Auto) 1.0, Eos # (Auto) 0.8 H, Baso # (Auto) 0.3 H, Total Counted 100, Neutrophils % (Manual) 64, Lymphocytes % (Manual) 21, Monocytes % (Manual) 9, Eosinophils % (Manual) 6 H, Platelet Estimate Normal, RBC Morphology Normal 02/06/22 11:00: Sodium 132 L, Potassium 4.7, Chloride 105, Carbon Dioxide 18 L, Anion Gap 13.7, BUN 16, Creatinine 1.30 H, Estimated Creat Clear 58, Estimated GFR 57 L, Est GFR ( Amer) 69, Glucose 255 H, Calcium 9.3, Total Bilirubin 0.7, AST 22, ALT 18, Alkaline Phosphatase 87, Troponin I < 0.01, Total Protein 7.7, Albumin 4.2, Globulin 3.5 H, Albumin/Globulin Ratio 1.2 02/06/22 11:15: SARS-CoV-2 (PCR) Not detected, Influenza A Untype (PCR) Not detected, Influenza Type B (PCR) Not detected Result diagrams: 02/06/22 11:00 02/06/22 11:00 Orders (Tests/Meds): ED MEDICATIONS Generic Name Dose Route Start Last Admin Trade Name Freq PRN Reason Stop Dose Admin Doxycycline Hyclate 100 mg 02/06/22 12:39 Doxycycline Hycl 100 Mg Tablet PO 02/06/22 12:40 ONCE ONE Sodium Chloride 10 ml 02/06/22 11:00 Sodium Chloride 0.9% 10ml Flush Syringe IV 03/08/22 10:59 NEEDED PRN Maintain IV Site Discontinued Medications Generic Name Dose Route Start Last Admin Trade Name Freq PRN Reason Stop Dose Admin Albuterol/Ipratropium 3 ml 02/06/22 11:08 02/06/22 11:21 Ipratropium/Albuter
--- NOTE | 2022-02-06 11:02 | PC.NURSE ---
NUBIA MALDONADO at
--- NOTE | 2022-02-06 11:02 | PC.NURSE ---
NUBIA MALDONADO at
--- NOTE | 2022-02-06 11:07 | XR_ITS ---
FINAL REPORT CLINICAL HISTORY: SOB, weakness, pt states that he slept from Thursday night to Thursday night which is uncommon for him. FINDINGS: Two views of the chest were obtained. The heart size and pulmonary vascularity are within normal limits. The mediastinum is normal. There is focal opacity in the right mid lung. There is no pneumothorax. The bony thorax is intact. IMPRESSION: Focal opacity in the right mid lung may represent atelectasis or pneumonia adjacent to the minor fissure. Follow-up radiographs may be helpful. Reviewed, Interpreted and Dictated by Derian Randle III, MD Transcribed by Gus Davis Authenticated and [facility]
[2022-02-06 11:08] LABS: Basophils # 0.3 K/mm3 (0-0.2); Basophils % 1.8 % (0.1-2.0); Eosinophils # 0.8 K/mm3 (0.0-0.4); Eosinophils % 5.5 % (0.1-12.0); Hematocrit 50.3 % (42.0-52.0); Hemoglobin 17.4 g/dL (14.1-18.0); Lymphocytes # 1.5 K/mm3 (0.7-4.5); Lymphocytes % 9.7 % (10-50); Mean Corpuscular HGB Conc 34.5 g/dL (31.8-35.4); Mean Corpuscular Hemoglobin 29.8 pg (27.0-31.2); Mean Corpuscular Volume 86.2 fl (80-94); Mean Platelet Volume 8.4 fl (7.4-10.4); Monocytes % 6.4 % (1.7-9.3); Neutrophils # 11.6 K/mm3 (1.8-7.8); Neutrophils % 76.6 % (37.0-80.0); Platelet Count 233 K/mm3 (142-424); Red Blood Count 5.84 M/mm3 (4.60-6.20); Red Cell Distribution Width 14.2 % (11.5-17.5); White Blood Count 15.1 K/mm3 (4.8-10.8)
[2022-02-06 11:10] LABS: MANUAL DIFFERENTIAL MANUAL DIFFERENTIAL (MANUAL DIFF)
[2022-02-06 11:14] LABS: Chloride 105 mmol/L (98-107); Potassium 4.7 mmoL/L (3.5-5.1); Sodium 132 mmol/L (136-145)
[2022-02-06 11:17] LABS: Alanine Aminotransferase 18 U/L (12-78); Albumin Level 4.2 g/dl (3.5-5.0); Albumin/Globulin Ratio 1.2 (1.1-1.8); Alkaline Phosphatase 87 U/L (38-126); Anion Gap 13.7 mEq/L (5-15); Aspartate Amino Transferase 22 U/L (17-59); Bilirubin,Total 0.7 mg/dl (0.2-1.3); Blood Urea Nitrogen 16 mg/dl (9-20); Carbon Dioxide 18 mmol/L (22.0-30.0); Creatinine Clearance Estimated 58 mL/min (50-200); Estimated Glomerular Filt Rate 57 ml/min (>60); GFR (African American) 69 ML/MIN (>60); Globulin 3.5 g/dL (1.3-3.2); Total Protein,Serum 7.7 g/dl (6.3-8.2)
[2022-02-06 11:18] LABS: Calcium 9.3 mg/dl (8.4-10.2); Glucose 255 mg/dl (74-100)
[2022-02-06 11:26] LABS: Coronavirus 19, PCR Not Detected (NotDetected); Influenza A, PCR Not Detected (NotDetected); Influenza B, PCR Not Detected (NotDetected)
[2022-02-06 11:30] LABS: Troponin I < 0.01 ng/ml (0.00-0.034)
[2022-02-06 11:34] LABS: Eosinophils % 6 % (0-3); Lymphocytes % 21 % (10-50); Monocytes % 9 % (2-9); Neutrophils % 64 % (42-76); Total Cells Counted 100
[2022-02-06 11:35] LABS: Platelet Estimate Normal; RBC Morphology Normal
--- NOTE | 2022-02-06 11:41 | PC.NURSE ---
pt given warm blanket; no other needs at this time
--- NOTE | 2022-02-06 12:28 | PC.NURSE ---
checked on pt at this time, pt states no needs at this time. Will continue to monitor
--- NOTE | 2022-02-06 12:40 | PC.NURSE ---
O2 removed at time for room air trial.
[2022-02-07 12:09] LABS: Hemoglobin A1C 8.1 % (4.0-6.0)
== END 2022-02-06 13:10 | disposition home or self-care (01) ==
PROVIDERS: Emergency Provider Emergency Medicine; PCP Internal Medicine
DX: J18.9 Pneumonia, unspecified organism (principal); R53.1 Weakness; R53.82 Chronic fatigue, unspecified; Z20.822 Contact with and (suspected) exposure to COVID-19; I11.0 Hypertensive heart disease with heart failure; I50.9 Heart failure, unspecified; I25.10 Atherosclerotic heart disease of native coronary artery without angina pectoris; E78.5 Hyperlipidemia, unspecified; E11.9 Type 2 diabetes mellitus without complications; J44.9 Chronic obstructive pulmonary disease, unspecified; F17.210 Nicotine dependence, cigarettes, uncomplicated; Z79.51 Long term (current) use of inhaled steroids; Z79.82 Long term (current) use of aspirin; Z79.52 Long term (current) use of systemic steroids; Z79.899 Other long term (current) drug therapy; Z88.0 Allergy status to penicillin; Z80.9 Family history of malignant neoplasm, unspecified
CPT/HCPCS: 71046; 80053; 83036; 84484; 85007; 85025; 93005; 99285; C9803; U0003; U0005

== ENCOUNTER → 2022-02-14 10:33 | Outpatient (CLI) | payer OTHER, SELFPAY ==
--- NOTE | 2022-02-14 10:40 | XR_ITS ---
FINAL REPORT CLINICAL HISTORY: PNEUMONIA FOLLOW UP COMPARISON: February 06, 2022 FINDINGS: Two views of the chest were obtained. The heart size and pulmonary vascularity are within normal limits. The mediastinum is normal. There has been interval resolution of the right mid lung opacity consistent with improved pneumonia. There is mild linear atelectasis in the mid left lung which is new from the prior. There is no pneumothorax. The bony thorax is intact. IMPRESSION: Improved right mid lung opacity consistent with pneumonia. New mid left lung linear atelectasis. Reviewed, Interpreted and Dictated by Derian Randle III, MD Transcribed by Giovanna Feliciano Authenticated and . [facility]
[2022-02-14 14:38] LABS: T4 (Thyroxine) 9.2 ug/dl (5.53-11.0)
[2022-02-14 14:51] LABS: Thyroid Stimulating Hormone 1.66 uIU/mL (0.465-4.68)
[2022-02-16 08:32] LABS: Triiodothyronine (T3) Total 160 ng/dL (71-180)
== END ==
PROVIDERS: PCP Internal Medicine; Visit Provider Internal Medicine
DX: J18.1 Lobar pneumonia, unspecified organism (principal); R53.83 Other fatigue; T38.0X5A Adverse effect of glucocorticoids and synthetic analogues, initial encounter
CPT/HCPCS: 71046; 82533; 84436; 84443; 84480

== ENCOUNTER → 2022-02-18 10:54 | Outpatient (CLI) | payer OTHER, SELFPAY | PROVIDERS: PCP Internal Medicine; Visit Provider Internal Medicine | DX: R53.83 Other fatigue (principal); J44.9 Chronic obstructive pulmonary disease, unspecified; R53.1 Weakness | CPT/HCPCS: 94762 ==

== ENCOUNTER → 2022-05-09 11:19 | Outpatient (CLI) | payer OTHER, SELFPAY | PROVIDERS: PCP Internal Medicine; Visit Provider Internal Medicine | DX: Z20.822 Contact with and (suspected) exposure to COVID-19 (principal) | CPT/HCPCS: 87275; 87276; C9803; U0003; U0005 ==

== ENCOUNTER 2022-06-12 16:34 | Inpatient (IN) | payer OTHER, SELFPAY ==
[2022-06-12] VITALS (15 sets, daily range): BP systolic 67–99; BP diastolic 46–66; PULSE 70–98; RESP 18–31; TEMP 36.7–36.9; O2SAT 89–96; BMI 22.6; BMI 21.1
--- NOTE | 2022-06-12 17:31 | XR_ITS ---
PROCEDURE INFORMATION: Exam: XR Chest Exam date and time: 06/12/2022 5:49 PM Age: 56 years old Clinical indication: Shortness of breath; Additional info: SOA TECHNIQUE: Imaging protocol: Radiologic exam of the chest. Views: 1 view. COMPARISON: CR XR CHEST 2V 02/14/2022 10:47 AM FINDINGS: Lungs: Right perihilar and right upper lobe airspace disease could correlate with pneumonia. Pleural spaces: Unremarkable. No pleural effusion. No pneumothorax. Heart/Mediastinum: Unremarkable. No cardiomegaly. Bones/joints: Unremarkable. IMPRESSION: Right perihilar and right upper lobe airspace disease could correlate with pneumonia. Consider both atypical and typical organisms. Recommend a 6 week follow-up standing PA and lateral chest radiograph series to establish complete resolution and exclude underlying malignancy.
[2022-06-12 17:40] LABS: Basophils # 0.2 K/mm3 (0-0.2); Basophils % 0.6 % (0.1-2.0); Eosinophils # 0.1 K/mm3 (0.0-0.4); Eosinophils % 0.3 % (0.1-12.0); Hematocrit 44.4 % (42.0-52.0); Hemoglobin 14.8 g/dL (14.1-18.0); Lymphocytes # 2.2 K/mm3 (0.7-4.5); Lymphocytes % 9.1 % (10-50); Mean Corpuscular HGB Conc 33.3 g/dL (31.8-35.4); Mean Corpuscular Hemoglobin 28.7 pg (27.0-31.2); Mean Corpuscular Volume 86.2 fl (80-94); Mean Platelet Volume 8.5 fl (7.4-10.4); Monocytes # 1.3 K/mm3 (0.1-1.0); Monocytes % 5.6 % (1.7-9.3); Neutrophils # 20.3 K/mm3 (1.8-7.8); Neutrophils % 84.5 % (37.0-80.0); Platelet Count 217 K/mm3 (142-424); Red Blood Count 5.15 M/mm3 (4.60-6.20); Red Cell Distribution Width 15.4 % (11.5-17.5)
[2022-06-12 17:41] LABS: Chloride 98 mmol/L (98-107)
[2022-06-12 17:42] LABS: Potassium 4.4 mmoL/L (3.5-5.1); Sodium 133 mmol/L (136-145)
[2022-06-12 17:43] LABS: MANUAL DIFFERENTIAL MANUAL DIFFERENTIAL (MANUAL DIFF)
[2022-06-12 17:44] LABS: Blood Urea Nitrogen 17 mg/dl (9-20); Creatinine Clearance Estimated 55 mL/min (50-200); Estimated Glomerular Filt Rate 57 ml/min (>60); GFR (African American) 69 ML/MIN (>60)
[2022-06-12 17:45] LABS: Anion Gap 14.4 mEq/L (5-15); Calcium 8.7 mg/dl (8.4-10.2); Carbon Dioxide 25 mmol/L (22.0-30.0); Glucose 97 mg/dl (74-100)
[2022-06-12 17:51] LABS: Coronavirus 19, PCR Not Detected (NotDetected); Influenza A, PCR Not Detected (NotDetected); Influenza B, PCR Not Detected (NotDetected)
--- NOTE | 2022-06-12 17:53 | ECG_ITS ---
APPROVED REPORT Exam: Resting ECG HR:93 bpm ECG Measurements Heart Rate 93 AXES WV 147 P 71 QRSd 90 QRS 75 QT 322 T 79 QTc 373 Conclusion SINUS RHYTHM NORMAL ECG UNCONFIRMED REPORT Electronically signed by : Michael Kenny MD 06/13/2022 12:34:15
[2022-06-12 17:57] LABS: Troponin I 0.03 ng/ml (0.00-0.034)
[2022-06-12 18:03] LABS: VBG HCO3 21.4 mmol/L (23-30); VBG Oxygen Saturation 78.4 % (50-70); VBG PCO2 38.6 mmol/L (35-51); VBG PH 7.36 mmol/L (7.31-7.41); VBG PO2 41.9 mmol/L (28-40); VBG Total CO2 22.6 mmol/L (23-27)
[2022-06-12 18:32] LABS: Lymphocytes % 14 % (10-50); Monocytes % 3 % (2-9); Neutrophils % 83 % (42-76); Platelet Estimate Normal; RBC Morphology Normal; Total Cells Counted 100
--- NOTE | 2022-06-12 18:59 | HMH.EDGENADL ---
Discharge Plan Disposition Chief Complaint: Shortness of Breath/Dyspnea Clinical Impressions Clinical Impression: Septic shock, Community acquired pneumonia, Acute respiratory failure with hypoxia, Hypoglycemia Discharge ED Provider: Bronson [facility] Adult HPI General Chief complaint: Shortness of Breath/Dyspnea Stated complaint: SOB,weakness Time Seen by Provider: 06/12/22 18:59 Mode of Arrival: Ambulatory Source of Information: Patient Limitations: No Limitations Description of Symptoms (Recalled from ER Triage Doc. by RN): pt to ed c/o shortness of breath. pt states he has been feeling worse over the past two days. pt states he has an inhaler but does not use it often. pt states a hx of copd. History of Present Illness HPI narrative: States he is having an asthma attack that began last night. States that he has used his nebulizer at home 3 times without improvement so he came to the emergency department. He has a cough producing clear sputum. He denies fever or chest pain. He says he is lightheaded whenever he bends over. He is a smoker. He says he has asthma and probably COPD as well. He is a diabetic. Related Data Home Medications Medication Instructions Recorded Confirmed albuterol sulfate 90 mcg/actuation 2 puff inhalation Q4-6H PRN SOA 12/28/17 11/18/21 aerosol inhaler (Ventolin HFA) aspirin 81 mg tablet,delayed 81 mg PO DAILY heart health 12/28/17 11/18/21 release (Adult Low Dose Aspirin) gabapentin 600 mg tablet 600 mg PO QHS Pain 12/28/17 11/18/21 theophylline 300 mg 300 mg PO BID COPD 12/28/17 11/18/21 capsule,extended release 24 hr carvedilol 25 mg tablet (Coreg) 25 mg PO BID Hypertension 02/02/18 11/18/21 spironolactone 25 mg tablet 25 mg PO BID Fluid 03/07/18 11/18/21 empagliflozin 10 mg tablet 10 mg PO DAILY 11/18/21 11/18/21 (Jardiance) fluticasone fur. 100 mcg-umeclid 1 inh inhalation DAILY 11/18/21 11/18/21 62.5 mcg-vilant 25 mcg inhalat.powder (Trelegy Ellipta) glipizide 5 mg tablet 5 mg PO BID Diabetes 03/28/22 03/28/22 ipratropium 0.5 mg-albuterol 3 mg 3 ml inhalation ONCE PRN 11/18/21 11/18/21 (2.5 mg base)/3 mL nebulization soln prednisone 5 mg tablet 5 mg PO DAILY Infection 11/18/21 11/18/21 Previous Rx's Medication Instructions Recorded doxycycline hyclate 100 mg 100 mg PO Q12 7 days #14 tabs 02/06/22 tablet,delayed release Allergies Allergy/AdvReac Type Severity Reaction Status Date / Time Penicillins Allergy Mild Verified 11/18/21 08:41 [facility] Medical History (Updated 06/12/22 @ 20:26 by Yovani Brennan DNP) Asthma CAD (coronary artery disease) COPD (chronic obstructive pulmonary disease) Diabetes Surgical History (Updated 06/12/22 @ 20:22 by Yovani Brennan DNP) H/O sinus surgery Percutaneous transluminal coronary angioplasty status Family History Other Coronary artery disease Social History Smoking Status: Current every day smoker tobacco type: cigarettes packs per day: 2 alcohol intake: never substance use type: denies use current occupational status: employed Travel in the last 8 weeks: Inside the [place] household members: spouse housing: house caffeine: Yes ROS Obtained: Yes Systems reviewed as appropriate & no additional complaints except as documented Constitutional Constitutional: Denies fever(s), Denies headache(s) and Reports other (Lightheadedness) ENT Ears, Nose, Mouth, and Throat: Denies headache(s), Denies nasal discharge and Denies sore throat Cardiovascular Cardiovascular: Denies chest pain Respiratory Respiratory: Reports shortness of breath and Reports cough Gastrointestinal Gastrointestingal: Denies abdominal pain, constipation, diarrhea or vomiting Genitourinary Male Genitourinary: Denies difficulty urinating and Denies flank pain Musculoskeletal Musculoskeletal: Denies
[2022-06-12 19:07] LABS: POC Glucose,Bedside 58 (70-110)
--- NOTE | 2022-06-12 19:20 | PC.NURSE ---
DR BRODERICK SPEAKING TO HOSPITALIST
[2022-06-12 19:46] LABS: Lactic Acid 1.2 mmol/L (0.7-2.1)
--- NOTE | 2022-06-12 20:15 | EXP.HP ---
History of Present Illness *Admission Date: 06/12/22 *Reason for visit:: SOA, Chills, Body aches, cough *History of present illness: Mr. Wilbert Herrera is a 56-year-old male with a past medical history that is positive for Asthma-COPD overlap syndrome, Chronic Tobacco Abuse, Diabetes Mellitus, HTN and CAD. He presents to [facility] today with a one day history of SOA associated with chills, body aches and subjective fevers that started acutely today. The patient was seen in the ER on admission. He denies known similar sick contacts, he also denies the use of otc medications for his symptoms. In the ER, Cxray performed showed a right perihilar and right upper lobe consolidation consistent with Pneumonia. BP was 88/60, HR 98. WBC was elevated at 24, 000. Blood glucose was low at 58 mg/dl. VBG obtained was within normal limits at 32% fiO2. The ABG was obtained on oxygen at 3L. The patient will be admitted with initial impression: Severe Sepsis. In the ER blood, sputum, urine cultures were obtained. The patient received fluid bolus per sepsis protocol. The patient was placed on Rocephin and Azithromycin for CAP. The plan of care to admit the patient was discussed with the patient at bedside in the ER along with the plan of care for the patient. The patient verbalized understanding and agreement with the plan of care. [facility] Medical History Asthma CAD (coronary artery disease) COPD (chronic obstructive pulmonary disease) Diabetes Surgical History H/O sinus surgery Percutaneous transluminal coronary angioplasty status Family History Other Coronary artery disease Social History (Updated 06/12/22 @ 23:05 by Jaz Salcedo RN) Smoking Status: Current every day smoker tobacco type: cigarettes packs per day: 2 alcohol intake: never substance use type: denies use current occupational status: employed Travel in the last 8 weeks: Inside the [place] household members: spouse housing: house caffeine: Yes Review of Systems Constitutional Constitutional: Reports body ache(s), Reports chills, Reports fatigue, Reports fever(s), Reports lethargy and Reports malaise Eyes Eyes: Reports system reviewed and no additional complaints, except as documented ENT Ears, Nose, Mouth, and Throat: Reports system reviewed and no additional complaints, except as documented *Cardiovascular Cardiovascular: Reports system reviewed and no additional complaints, except as documented, Reports dyspnea and Reports dyspnea on exertion *Respiratory Respiratory: Reports chest congestion, Reports cough, Reports dyspnea, Reports dyspnea on exertion and Reports wheezing *Gastrointestinal Gastrointestinal: Reports system reviewed and no additional complaints, except as documented *Genitourinary Genitourinary: Reports system reviewed and no additional complaints, except as documented *Musculoskeletal Musculoskeletal: Reports myalgias Integumentary/Breasts Skin/Breast: Reports system reviewed and no additional complaints, except as documented *Neurologic Neurologic: Reports system reviewed and no additional complaints, except as documented Psychiatric Psychiatric: Reports system reviewed and no additional complaints, except as documented Endocrine Endocrine: Reports fatigue Hematologic/Lymphatic Hematologic/Lymphatic: Reports system reviewed and no additional complaints, except as documented Allergic/Immunologic Allergic/Immunologic: Reports wheezing Meds Home Medications and Allergies Home Medications Medication Instructions Recorded Confirmed Type albuterol sulfate 90 mcg/actuation 2 puff inhalation Q6HP PRN SOA 12/28/17 06/13/22 History aerosol inhaler (Ventolin HFA) aspirin 81 mg tablet,delayed 81 mg PO DAILY heart health 12/28/17 06/13/22 His
[2022-06-12 20:19] LABS: Procalcitonin 2.35 ng/mL (0.0-2.0)
--- NOTE | 2022-06-12 20:53 | PC.NURSE ---
alysha FS 117, receiving nurse Jaz West
--- NOTE | 2022-06-12 21:05 | PC.NURSE ---
PT ARRIVED TO FLOOR VIA STRETCHER @ 2101.
[2022-06-12 21:09] LABS: POC Glucose,Bedside 117 (70-110)
[2022-06-12 21:10] LABS: Troponin I 0.02 ng/ml (0.00-0.034)
--- NOTE | 2022-06-12 21:17 | PC.NURSE ---
admitted pt to 217 from ER, upon arrival to floor pt hypotensive, unable to get bp on LUE, bp 83/30 on LLE, and bp 70/39 on RUE, notified JUAN DIEGO Brennan of hypotension JUAN DIEGO stated to start levophed and will notify seasonal warehouse associate of such
--- NOTE | 2022-06-12 21:37 | PC.NURSE ---
bp prior to starting drip 73/45 @2132 started levo drip at 8mcg/min bp 78/44 @2135
[2022-06-12 22:08] LABS: Mycoplasma Pneumo IGM (Rapid) Non-Reactive (Non-Reactiv)
[2022-06-12 23:47] LABS: Troponin I 0.02 ng/ml (0.00-0.034)
[2022-06-13] VITALS (16 sets, daily range): BP systolic 84–101; BP diastolic 44–72; PULSE 80–110; RESP 16–36; TEMP 36.2–36.8; O2SAT 90–99; BMI 21.0; BMI 20.9
--- NOTE | 2022-06-13 05:58 | PC.NURSE ---
0600 [employer]ash emptied and ice water refilled
--- NOTE | 2022-06-13 06:36 | PC.NURSE ---
pt's levo drip on 8mcg/min and bp 98/74, whenever attempt to titrate levo down to 6mcg/min sbp or map decreases below WNL
--- NOTE | 2022-06-13 06:40 | PC.NURSE ---
RESPIRATORY CARE NOTE: PT STATED THAT HE HAS BEEN COUGHING UP SPUTUM. GAVE HIM SPUTUM CUP AT THIS TIME AND INSTRUCTED PT TO TRY TO GIVE SAMPLE IN THAT CUP.
[2022-06-13 06:51] LABS: Chloride 104 mmol/L (98-107); Potassium 4.7 mmoL/L (3.5-5.1); Sodium 135 mmol/L (136-145)
[2022-06-13 06:54] LABS: Alanine Aminotransferase 16 U/L (12-78); Albumin Level 3.4 g/dl (3.5-5.0); Albumin/Globulin Ratio 1.1 (1.1-1.8); Alkaline Phosphatase 105 U/L (38-126); Anion Gap 21.7 mEq/L (5-15); Aspartate Amino Transferase 23 U/L (17-59); Bilirubin,Total 0.5 mg/dl (0.2-1.3); Blood Urea Nitrogen 19 mg/dl (9-20); Calcium 7.8 mg/dl (8.4-10.2); Carbon Dioxide 14 mmol/L (22.0-30.0); Creatinine Clearance Estimated 66 mL/min (50-200); Estimated Glomerular Filt Rate 77 ml/min (>60); GFR (African American) 93 ML/MIN (>60); Globulin 3.1 g/dL (1.3-3.2); Glucose 281 mg/dl (74-100); Total Protein,Serum 6.5 g/dl (6.3-8.2)
[2022-06-13 07:16] LABS: Basophils % 0.2 % (0.1-2.0); Eosinophils % 0.1 % (0.1-12.0); Hematocrit 42.9 % (42.0-52.0); Hemoglobin 13.9 g/dL (14.1-18.0); Lymphocytes # 0.6 K/mm3 (0.7-4.5); Lymphocytes % 3.2 % (10-50); Mean Corpuscular HGB Conc 32.5 g/dL (31.8-35.4); Mean Corpuscular Hemoglobin 28.2 pg (27.0-31.2); Mean Corpuscular Volume 86.9 fl (80-94); Mean Platelet Volume 9.1 fl (7.4-10.4); Monocytes # 0.3 K/mm3 (0.1-1.0); Monocytes % 1.6 % (1.7-9.3); Neutrophils # 17.3 K/mm3 (1.8-7.8); Neutrophils % 94.8 % (37.0-80.0); Platelet Count 240 K/mm3 (142-424); Red Blood Count 4.93 M/mm3 (4.60-6.20); Red Cell Distribution Width 15.4 % (11.5-17.5); White Blood Count 18.2 K/mm3 (4.8-10.8)
[2022-06-13 07:20] LABS: MANUAL DIFFERENTIAL MANUAL DIFFERENTIAL (MANUAL DIFF)
[2022-06-13 07:55] LABS: Anisocytosis 1+; Lymphocytes % 1 % (10-50); Macrocytosis 1+; Monocytes % 1 % (2-9); Neutrophils % 98 % (42-76); Ovalocytes 1+; Platelet Estimate Normal; Poikilocytosis 1+; Total Cells Counted 100
--- NOTE | 2022-06-13 08:09 | EXP.PHA.CONS ---
Pharmacy Consult Date: 06/13/22 Time: 08:09 Referring provider: DR. PADRON Reason for Consult:: VANCOMYCIN DOSING Allergies Allergy/AdvReac Type Severity Reaction Status Date / Time Penicillins Allergy Mild Verified 11/18/21 08:41 Home Medications Medication Instructions Recorded Confirmed Type albuterol sulfate 90 mcg/actuation 2 puff inhalation Q4-6H PRN SOA 12/28/17 11/18/21 History aerosol inhaler (Ventolin HFA) aspirin 81 mg tablet,delayed 81 mg PO DAILY heart health 12/28/17 11/18/21 History release (Adult Low Dose Aspirin) gabapentin 600 mg tablet 600 mg PO QHS Pain 12/28/17 11/18/21 History theophylline 300 mg 300 mg PO BID COPD 12/28/17 11/18/21 History capsule,extended release 24 hr carvedilol 25 mg tablet (Coreg) 25 mg PO BID Hypertension 02/02/18 11/18/21 History spironolactone 25 mg tablet 25 mg PO BID Fluid 03/07/18 11/18/21 History empagliflozin 10 mg tablet 10 mg PO DAILY 11/18/21 11/18/21 History (Jardiance) fluticasone fur. 100 mcg-umeclid 1 inh inhalation DAILY 11/18/21 11/18/21 History 62.5 mcg-vilant 25 mcg inhalat.powder (Trelegy Ellipta) glipizide 5 mg tablet 5 mg PO BID Diabetes 11/18/21 11/18/21 History ipratropium 0.5 mg-albuterol 3 mg 3 ml inhalation ONCE PRN 11/18/21 11/18/21 History (2.5 mg base)/3 mL nebulization soln prednisone 5 mg tablet 5 mg PO DAILY Infection 11/18/21 11/18/21 History doxycycline hyclate 100 mg 100 mg PO Q12 7 days #14 tabs 02/06/22 Rx tablet,delayed release New Prescriptions to Start Prescriptions: Height: 1.65 m Weight: 57.243 kg Laboratory Results:: Laboratory Results - last 24 hr 06/12/22 16:50: Procalcitonin 2.35 H 06/12/22 16:50: Mycoplasma pneumon IgM Non-reactive 06/12/22 16:52: SARS-CoV-2 (PCR) Not detected, Influenza A Untype (PCR) Not detected, Influenza Type B (PCR) Not detected 06/12/22 16:58: Sodium 133 L, Potassium 4.4, Chloride 98, Carbon Dioxide 25, Anion Gap 14.4, BUN 17, Creatinine 1.30 H, Estimated Creat Clear 55, Estimated GFR 57 L, Est GFR ( Amer) 69, Glucose 97, Calcium 8.7, Troponin I 0.03 06/12/22 16:58: WBC 24.0 H*, RBC 5.15, Hgb 14.8, Hct 44.4, MCV 86.2, MCH 28.7, MCHC 33.3, RDW 15.4, Plt Count 217, MPV 8.5, Neut % (Auto) 84.5 H, Lymph % (Auto) 9.1 L, [place] % (Auto) 5.6, Eos % (Auto) 0.3, Baso % (Auto) 0.6, Neut # (Auto) 20.3 H, Lymph # (Auto) 2.2, Gaston # (Auto) 1.3 H, Eos # (Auto) 0.1, Baso # (Auto) 0.2, Total Counted 100, Neutrophils % (Manual) 83 H, Lymphocytes % (Manual) 14, Monocytes % (Manual) 3, Platelet Estimate Normal, RBC Morphology Normal 06/12/22 16:58: Lactate 1.2 06/12/22 18:00: VBG pH 7.36, VBG pCO2 38.6, VBG pO2 41.9 H, VBG HCO3 21.4 L, VBG Total CO2 22.6 L, VBG O2 Saturation 78.4 H, VBG Base Excess -4.0 L 06/12/22 19:00: POC Glucose 58 L 06/12/22 20:41: Troponin I 0.02 06/12/22 20:51: POC Glucose 117 H 06/12/22 23:19: Troponin I 0.02 06/13/22 05:46: Sodium 135 L, Potassium 4.7, Chloride 104, Carbon Dioxide 14 L, Anion Gap 21.7 H, BUN 19, Creatinine 1.00 D, Estimated Creat Clear 66, Estimated GFR 77, Est GFR ( Amer) 93 D, Glucose 281 H D, Calcium 7.8 L, Total Bilirubin 0.5, AST 23, ALT 16, Alkaline Phosphatase 105, Total Protein 6.5, Albumin 3.4 L, Globulin 3.1, Albumin/Globulin Ratio 1.1 06/13/22 05:46: WBC 18.2 H, RBC 4.93, Hgb 13.9 L, Hct 42.9, MCV 86.9, MCH 28.2, MCHC 32.5, RDW 15.4, Plt Count 240, MPV 9.1, Neut % (Auto) 94.8 H, Lymph % (Auto) 3.2 L, Gaston % (Auto) 1.6 L, Eos % (Auto) 0.1, Baso % (Auto) 0.2, Neut # (Auto) 17.3 H, Lymph # (Auto) 0.6 L, G[place] # (Auto) 0.3, Eos # (Auto) 0.0, Baso # (Auto) 0.0, Total Counted 100, Neutrophils % (Manual) 98 H, Lymphocytes % (Manual) 1 L, Monocytes % (Manual) 1 L, Platelet Estimate Normal, Poikilocytosis 1+, Anisocytosis 1+, Macrocytosis 1+, Ovalocytes 1+ Medical History: Medical History (Updated 06/12/22 @ 20:26 by Yovani Brennan DNP) Asthma CAD (coronary artery disease) COPD (chronic obstructive pulmonary disease) Diabetes Assessm
[2022-06-13 08:47] LABS: POC Glucose,Bedside 109 (70-110)
[2022-06-13 08:47] LABS: POC Glucose,Bedside 283 (70-110)
[2022-06-13 09:35] LABS: Theophylline 6.8 ug/ml (10-20)
[2022-06-13 09:55] LABS: Procalcitonin 1.87 ng/mL (0.0-2.0)
--- NOTE | 2022-06-13 11:23 | EXP.ACUTE.PN ---
Subjective *Date: 06/13/22 *Time: 16:00 Interval history: States he is feeling somewhat better. Still short of breath and requiring oxygen. Complaining of lower extremity tingling consistent with his neuropathy as he missed his gabapentin yesterday. Wanting to eat. Ambulating to bathroom. Blood pressures remaining stable with weaning of Levophed. No nausea or vomiting, no cough, no headache or fever. Medical Exam Vital signs and Labs for Last 24 Hours: Vital Signs Temp Pulse Pulse Resp BP BP Pulse Ox 06/13/22 08:00 97.7 F 96 H 24 100/68 L 96 06/13/22 06:40 86 06/13/22 06:40 88 06/13/22 06:40 96 06/13/22 06:00 83 32 H 101/68 L 98 06/13/22 04:00 85 06/13/22 04:00 97.5 F L 06/13/22 04:00 82 25 H 88/58 L 97 06/12/22 22:00 82 20 99/61 L 93 L 06/13/22 02:00 86 22 91/56 L 96 06/13/22 00:00 91 H 18 96/49 L 93 L 06/13/22 00:00 91 H 06/12/22 21:28 94 H 06/13/22 00:00 98.1 F 06/12/22 23:35 98.4 F 98 H 20 98/60 L 06/12/22 21:41 98.0 F 88 31 H 87/58 L 92 L 06/12/22 20:00 98 H 20 98/60 L 95 06/12/22 19:30 92 H 20 92/59 L 95 06/12/22 19:08 97 H 18 88/60 L 94 L 06/12/22 18:30 88 18 71/49 L 95 06/12/22 18:00 92 H 20 93/60 L 94 L 06/12/22 17:58 70 18 91/66 L 96 06/12/22 16:40 98.2 F 93 H 21 88/56 L 96 06/12/22 17:32 94 H 20 67/46 L 92 L 06/12/22 17:25 96 H 18 76/52 L 89 L 06/12/22 16:57 96 H 18 89/62 L 92 L 06/12/22 16:44 96 H 18 81/56 L 94 L Intake and Output 06/12/22 06/13/22 06/13/22 23:59 07:59 15:59 Intake Total 752 / 752 Output Total 1100 / 1400 300 / 1400 Balance -348 / -648 -300 / -648 Intake: Intake, Oral Amount 402 / 402 Intake, Total IV Amount 350 / 350 Levofloxacin/D5w 750 mg/150 ml 150 / 150 750 mg In 150 ml @ 100 mls/hr IV Q24H [facility] Rx#:[id number] Metronidaz/Sod Chl 500 mg In 200 / 200 100 ml @ 100 mls/hr IV Q6H [facility] Rx#:[id number] Output: Output, Urine Amount 1100 / 1400 300 / 1400 Other: Number of Voids 1 Weight 57.425 kg 57.243 kg 57.243 kg Patient Weight 06/13/22 23:59 Weight 57.243 kg Laboratory Results - last 24 hr 06/12/22 16:50: Procalcitonin 2.35 H 06/12/22 16:50: Mycoplasma pneumon IgM Non-reactive 06/12/22 16:52: SARS-CoV-2 (PCR) Not detected, Influenza A Untype (PCR) Not detected, Influenza Type B (PCR) Not detected 06/12/22 16:58: Sodium 133 L, Potassium 4.4, Chloride 98, Carbon Dioxide 25, Anion Gap 14.4, BUN 17, Creatinine 1.30 H, Estimated Creat Clear 55, Estimated GFR 57 L, Est GFR ( Amer) 69, Glucose 97, Calcium 8.7, Troponin I 0.03 06/12/22 16:58: WBC 24.0 H*, RBC 5.15, Hgb 14.8, Hct 44.4, MCV 86.2, MCH 28.7, MCHC 33.3, RDW 15.4, Plt Count 217, MPV 8.5, Neut % (Auto) 84.5 H, Lymph % (Auto) 9.1 L, Bureau % (Auto) 5.6, Eos % (Auto) 0.3, Baso % (Auto) 0.6, Neut # (Auto) 20.3 H, Lymph # (Auto) 2.2, Bureau # (Auto) 1.3 H, Eos # (Auto) 0.1, Baso # (Auto) 0.2, Total Counted 100, Neutrophils % (Manual) 83 H, Lymphocytes % (Manual) 14, Monocytes % (Manual) 3, Platelet Estimate Normal, RBC Morphology Normal 06/12/22 16:58: Lactate 1.2 06/12/22 18:00: VBG pH 7.36, VBG pCO2 38.6, VBG pO2 41.9 H, VBG HCO3 21.4 L, VBG Total CO2 22.6 L, VBG O2 Saturation 78.4 H, VBG Base Excess -4.0 L 06/12/22 19:00: POC Glucose 58 L 06/12/22 20:41: Troponin I 0.02 06/12/22 20:51: POC Glucose 117 H 06/12/22 21:13: POC Glucose 109 06/12/22 23:19: Troponin I 0.02 06/13/22 05:46: Sodium 135 L, Potassium 4.7, Chloride 104, Carbon Dioxide 14 L, Anion Gap 21.7 H, BUN 19, Creatinine 1.00 D, Estimated Creat Clear 66, Estimated GFR 77, Est GFR ( Amer) 93 D, Glucose 281 H D, Calcium 7.8 L, Total Bilirubin 0.5, AST 23, ALT 16, Alkaline Phosphatase 105, Total Protein 6.5, Albumin 3.4 L, Globulin 3.1, Albumin/Globulin Ratio 1.1 06/13/22 05:46: Procalcitonin 1.8
--- NOTE | 2022-06-13 11:45 | PC.NURSE ---
BP 95/65 (75). Levo gtt turned OFF.
--- NOTE | 2022-06-13 14:00 | PC.NURSE ---
BP 84/44. Levo gtt turned back on at 4mcg/min
--- NOTE | 2022-06-13 14:14 | HMH.PHAINT1 ---
Pharmacy Intervention Comments: MEDICATION RECONCILIATION COMPLETE USING LIST FROM MD OFFICE AND EXTERNAL PHARMACY FILL HISTORY.
[2022-06-13 16:30] LABS: POC Glucose,Bedside 260 (70-110)
[2022-06-13 19:29] LABS: Lactate Dehydrogenase 217 U/L (313-618)
[2022-06-13 20:17] LABS: POC Glucose,Bedside 323 (70-110)
[2022-06-14] VITALS (17 sets, daily range): BP systolic 74–106; BP diastolic 45–73; PULSE 75–100; RESP 21–34; TEMP 36.4–36.7; O2SAT 90–98; BMI 20.7
[2022-06-14 02:26] LABS: POC Glucose,Bedside 354 (70-110)
[2022-06-14 07:03] LABS: Chloride 108 mmol/L (98-107)
[2022-06-14 07:04] LABS: Sodium 139 mmol/L (136-145)
[2022-06-14 07:05] LABS: Hemoglobin A1C 8.3 % (4.0-6.0)
[2022-06-14 07:06] LABS: Alanine Aminotransferase 13 U/L (12-78); Alkaline Phosphatase 87 U/L (38-126); Aspartate Amino Transferase 19 U/L (17-59); Bilirubin,Total 0.2 mg/dl (0.2-1.3); Blood Urea Nitrogen 25 mg/dl (9-20); Creatinine Clearance Estimated 81 mL/min (50-200); Estimated Glomerular Filt Rate 100 ml/min (>60); GFR (African American) 121 ML/MIN (>60)
[2022-06-14 07:07] LABS: Albumin Level 3.3 g/dl (3.5-5.0); Calcium 8.1 mg/dl (8.4-10.2); Carbon Dioxide 17 mmol/L (22.0-30.0); Globulin 3.2 g/dL (1.3-3.2); Glucose 139 mg/dl (74-100); Magnesium 2.3 mg/dl (1.6-2.3); Total Protein,Serum 6.5 g/dl (6.3-8.2)
[2022-06-14 08:12] LABS: POC Glucose,Bedside 148 (70-110)
[2022-06-14 09:02] LABS: Basophils % 0.1 % (0.1-2.0); Eosinophils % 0.1 % (0.1-12.0); Hematocrit 40.8 % (42.0-52.0); Hemoglobin 13.4 g/dL (14.1-18.0); Lymphocytes # 0.7 K/mm3 (0.7-4.5); Lymphocytes % 3.6 % (10-50); Mean Corpuscular HGB Conc 32.7 g/dL (31.8-35.4); Mean Corpuscular Hemoglobin 28.2 pg (27.0-31.2); Mean Corpuscular Volume 86.1 fl (80-94); Monocytes # 0.7 K/mm3 (0.1-1.0); Monocytes % 3.2 % (1.7-9.3); Neutrophils # 19.1 K/mm3 (1.8-7.8); Platelet Count 279 K/mm3 (142-424); Red Blood Count 4.74 M/mm3 (4.60-6.20); Red Cell Distribution Width 15.4 % (11.5-17.5); White Blood Count 20.5 K/mm3 (4.8-10.8)
[2022-06-14 09:12] LABS: MANUAL DIFFERENTIAL MANUAL DIFFERENTIAL (MANUAL DIFF)
[2022-06-14 10:05] LABS: Lymphocytes % 11 % (10-50); Monocytes % 1 % (2-9); Neutrophils % 87 % (42-76); Nucleated Red Blood Cells 1; Platelet Estimate Normal; RBC Morphology Normal; Total Cells Counted 100
[2022-06-14 11:54] LABS: POC Glucose,Bedside 234 (70-110)
--- NOTE | 2022-06-14 13:10 | EXP.DC.SUM ---
General Admission date:: 06/12/22 Discharge date: 06/14/22 HPI HPI HPI: Mr. Wilbert Herrera is a 56-year-old male with a past medical history that is positive for Asthma-COPD overlap syndrome, Chronic Tobacco Abuse, Diabetes Mellitus, HTN and CAD. He presents to [facility] today with a one day history of SOA associated with chills, body aches and subjective fevers that started acutely today. The patient was seen in the ER on admission. He denies known similar sick contacts, he also denies the use of otc medications for his symptoms. In the ER, Cxray performed showed a right perihilar and right upper lobe consolidation consistent with Pneumonia. BP was 88/60, HR 98. WBC was elevated at 24, 000. Blood glucose was low at 58 mg/dl. VBG obtained was within normal limits at 32% fiO2. The ABG was obtained on oxygen at 3L. The patient will be admitted with initial impression: Severe Sepsis. In the ER blood, sputum, urine cultures were obtained. The patient received fluid bolus per sepsis protocol. The patient was placed on Rocephin and Azithromycin for CAP. The plan of care to admit the patient was discussed with the patient at bedside in the ER along with the plan of care for the patient. The patient verbalized understanding and agreement with the plan of care. Hospital Course Hospital Course Hospital Course: [id number]-male with history of Asthma/COPD overlap syndrome presents with acute onset of subjective fevers, body aches, chills, cough and SOA.? Found to have findings concerning for Septic Shock.? Improved over duration of hospital course. Responded appropriately to fluids and antibiotics. Was slow to wean off Levophed. Transitioned to midodrine to help keep blood pressure up, however review of patient's chart shows that his blood pressures (systolics) range in the 90-100s range over the past several years. Even had an echo performed in October with blood pressure 99/72. He is at baseline mentation and function. Ambulating independently. Tolerating regular diet. Afebrile. Stable on room air. Medically stable for discharge home. Recommend close follow-up with his primary care. Problems addressed as follows: Septic shock Pneumonia with COPD exacerbation -Admitted for hypotension, sepsis, and findings of pneumonia on imaging. Started on broad-spectrum antibiotics. Given atypical nature and appearance of infection, transition to Bactrim. Patient has been on longstanding steroids for many years from his primary care. Has never been on PCP prophylaxis. LDH was obtained which was low. Fungitell obtained and pending. Have low suspicion for pneumocystis pneumonia at this time. We will treat empirically for community-acquired pneumonia with Bactrim. Recommend following up closely with his primary care. Have also referred him to pulmonology for further management of his COPD. Continue home oxygen as needed, however on room air at discharge. Asthma/COPD overlap syndrome - Given Solu-medrol in the ER. Treated with home inhalers. Transition back to home prednisone and inhaler regimen at discharge. Needs to see a chief deputy sheriff as it has been several years. Referred as above. Continued home theophylline. States it has been helping him even though he is subtherapeutic on labs on admission. Hypertension -Has a diagnosis of hypertension and is on carvedilol 25 mg twice a day however he has been hypotensive. Extensive review of chart shows that his blood pressures are actually quite low on average for his baseline. To assist with weaning off Levophed, was started on midodrine. Systolic blood pressures remained in the 90s with maps above 65. We will continue midodrine 5 mg 3 times a day until follow-up with his PCP where they can discuss weaning at that time. Recommend discontinuing carvedilol. Peripheral neuropathy, on gabapentin at home.? Resumed during admission Diabetes Mellitus -Resumed home regimen when jostino
[2022-06-17 15:17] LABS: Body Fluid Culture, Sterile Not indicated. (.); Organism ID Not indicated. (.); Specimen Source Urine (.); Streptococcus pneumoniae Ag Negative (Negative)
[2022-06-17 17:49] LABS: Fungitell(Beta D-Glucan) Serum <31 pg/mL (<80)
--- NOTE | 2022-06-18 13:08 | CARE MANAGER ---
Attempted to contact patient x3 related to discharge from hospital. Left VM message. SUZY Guidry
[2022-07-09 11:57] LABS: MRSA DNA PCR NEGATIVE
[2022-07-27 23:44] LABS: Legionella pneumophila Urinary NEGATIVE
== END 2022-06-14 16:00 | disposition home or self-care (01) | DRG 871 ==
LOC: ER 16:49 → 2ND 20:19
PROVIDERS: Nurse Practitioner Family; Admitting Provider Internal Medicine Adolescent Medicine; Emergency Provider Emergency Medicine; PCP Internal Medicine; Visit Provider Internal Medicine Adolescent Medicine
DX: A41.9 Sepsis, unspecified organism (principal); J18.9 Pneumonia, unspecified organism; R65.21 Severe sepsis with septic shock; J44.0 Chronic obstructive pulmonary disease with (acute) lower respiratory infection; J44.1 Chronic obstructive pulmonary disease with (acute) exacerbation; I10 Essential (primary) hypertension; I25.10 Atherosclerotic heart disease of native coronary artery without angina pectoris; Z95.5 Presence of coronary angioplasty implant and graft; F17.210 Nicotine dependence, cigarettes, uncomplicated; E11.42 Type 2 diabetes mellitus with diabetic polyneuropathy; Z79.84 Long term (current) use of oral hypoglycemic drugs
CPT/HCPCS: 36415; 71045; 80048; 80053; 80198; 82803; 82962; 83036; 83605; 83615; 83735; 84145; 84484; 85007; 85025; 86738; 87040; 87070; 87086; 87205; 87449; 87641; 87899; 93005; 94640; 99291; C9803; J0456; J0696; J1956; J3370; U0003; U0005

== ENCOUNTER → 2022-06-25 14:23 | Outpatient (CLI) | payer OTHER, SELFPAY ==
[2022-06-25 15:41] LABS: Basophils # 0.2 K/mm3 (0-0.2); Basophils % 1.1 % (0.1-2.0); Eosinophils # 0.2 K/mm3 (0.0-0.4); Eosinophils % 1.6 % (0.1-12.0); Hematocrit 49.4 % (42.0-52.0); Hemoglobin 15.7 g/dL (14.1-18.0); Lymphocytes % 19.7 % (10-50); Mean Corpuscular HGB Conc 31.8 g/dL (31.8-35.4); Mean Corpuscular Hemoglobin 28.4 pg (27.0-31.2); Mean Corpuscular Volume 89.3 fl (80-94); Mean Platelet Volume 8.1 fl (7.4-10.4); Monocytes % 6.5 % (1.7-9.3); Neutrophils # 10.8 K/mm3 (1.8-7.8); Neutrophils % 71.2 % (37.0-80.0); Platelet Count 285 K/mm3 (142-424); Red Blood Count 5.54 M/mm3 (4.60-6.20); Red Cell Distribution Width 16.1 % (11.5-17.5); White Blood Count 15.2 K/mm3 (4.8-10.8)
[2022-06-25 15:48] LABS: MANUAL DIFFERENTIAL MANUAL DIFFERENTIAL (MANUAL DIFF)
[2022-06-25 16:25] LABS: C-Reactive Protein 6.1 mg/L (0-4)
[2022-06-25 18:00] LABS: Lymphocytes % 34 % (10-50); Monocytes % 2 % (2-9); Neutrophils % 64 % (42-76); Total Cells Counted 100
[2022-06-25 18:03] LABS: Platelet Estimate Normal; RBC Morphology Normal
[2022-07-01 16:12] LABS: Strongyloides IgG Antibody Negative (Negative)
[2022-07-05 02:19] LABS: D001-IgE D pteronyssinus <0.10 kU/L (Class 0); D002-IgE D farinae <0.10 kU/L (Class 0); E001-IgE Cat Dander <0.10 kU/L (Class 0); E005-IgE Dog Dander <0.10 kU/L (Class 0); E072-IgE Mouse Urine <0.10 kU/L (Class 0); G002-IgE Bermuda Grass <0.10 kU/L (Class 0); G006-IgE Timothy Grass <0.10 kU/L (Class 0); I006-IgE Cockroach, German <0.10 kU/L (Class 0); Immunoglobulin E, Total 84 IU/mL (6-495); M001-IgE Penicillium chrysogen <0.10 kU/L (Class 0); M002-IgE Cladosporium herbarum <0.10 kU/L (Class 0); M003-IgE Aspergillus fumigatus <0.10 kU/L (Class 0); M006-IgE Alternaria alternata <0.10 kU/L (Class 0); T001-IgE Maple/Box Elder <0.10 kU/L (Class 0); T003-IgE Common Silver Birch <0.10 kU/L (Class 0); T006-IgE Cedar, Mountain <0.10 kU/L (Class 0); T007-IgE Oak, White <0.10 kU/L (Class 0); T008-IgE Elm, American <0.10 kU/L (Class 0); T010-IgE Walnut <0.10 kU/L (Class 0); T011-IgE Maple Leaf Sycamore <0.10 kU/L (Class 0); T014-IgE Cottonwood <0.10 kU/L (Class 0); T015-IgE Ash, White <0.10 kU/L (Class 0); T022-IgE Pecan, Hickory <0.10 kU/L (Class 0); T070-IgE White Mulberry <0.10 kU/L (Class 0); W001-IgE Ragweed, Short <0.10 kU/L (Class 0); W011-IgE Thistle, Russian <0.10 kU/L (Class 0); W014-IgE Pigweed, Common <0.10 kU/L (Class 0); W018-IgE Sheep Sorrel <0.10 kU/L (Class 0)
[2022-07-26 22:16] LABS: Aspergillus fumigatus IgG 3.2
== END ==
PROVIDERS: PCP Internal Medicine; Visit Provider Internal Medicine Pulmonary Disease
DX: R06.09 Other forms of dyspnea (principal); J30.9 Allergic rhinitis, unspecified; D72.19 Other eosinophilia; J45.909 Unspecified asthma, uncomplicated
CPT/HCPCS: 36415; 82785; 85007; 85025; 86003; 86140; 86606; 86682

== ENCOUNTER → 2022-07-15 07:43 | Outpatient (CLI) | payer OTHER, SELFPAY ==
[2022-07-15 08:40] VITALS: PULSE 83; PULSE 86
== END ==
PROVIDERS: PCP Internal Medicine; Visit Provider Internal Medicine Pulmonary Disease
DX: R06.09 Other forms of dyspnea (principal)
CPT/HCPCS: 94060; 94618; 94640; 94727; 94729

== ENCOUNTER → 2023-01-05 17:07 | Outpatient (CLI) | payer OTHER, SELFPAY ==
[2023-01-05 18:18] LABS: Albumin/Globulin Ratio 1.6 (1.1-1.8); Alkaline Phosphatase 105 U/L (38-126); Anion Gap 17.9 mEq/L (5-15); Bilirubin,Total 0.4 mg/dl (0.2-1.3); Blood Urea Nitrogen 18 mg/dl (9-20); Carbon Dioxide 24 mmol/L (22.0-30.0); Chloride 100 mmol/L (98-107); Chol/HDL Ratio 5.7 (1-3.5); Cholesterol 200 mg/dl (140-200); Estimated Glomerular Filt Rate 77 ml/min (>60); GFR (African American) 93 ML/MIN (>60); Globulin 2.5 g/dL (1.3-3.2); Glucose 171 mg/dl (74-100); HDL Cholesterol 35 mg/dl (40-60); Potassium 3.9 mmoL/L (3.5-5.1); Sodium 138 mmol/L (136-145); Total Protein,Serum 6.5 g/dl (6.3-8.2); Triglycerides 291 mg/dl (30-150); VLDL Cholesterol 58 mg/dL (0-40)
[2023-01-05 18:21] LABS: Alanine Aminotransferase 25 U/L (12-78); Aspartate Amino Transferase 28 U/L (17-59)
[2023-01-05 19:03] LABS: Hemoglobin A1C 6.5 % (4.0-6.0)
[2023-01-05 19:41] LABS: Microalbumin < 6.000 mg/L (0-16.7)
[2023-01-05 19:51] LABS: Creatinine,Urine Random 64 mg/dL (Not Estab.)
== END ==
PROVIDERS: PCP Internal Medicine; Visit Provider Internal Medicine
DX: E11.59 Type 2 diabetes mellitus with other circulatory complications (principal); E11.42 Type 2 diabetes mellitus with diabetic polyneuropathy; I25.10 Atherosclerotic heart disease of native coronary artery without angina pectoris; E78.5 Hyperlipidemia, unspecified; E27.3 Drug-induced adrenocortical insufficiency; J44.9 Chronic obstructive pulmonary disease, unspecified; F17.209 Nicotine dependence, unspecified, with unspecified nicotine-induced disorders; Z79.84 Long term (current) use of oral hypoglycemic drugs
CPT/HCPCS: 80053; 80061; 82043; 82533; 82570; 83036

== ENCOUNTER 2023-10-02 12:37 | Emergency (ER) | payer SELFPAY ==
--- NOTE | 2023-10-02 12:40 | ED_ITS ---
Discharge Plan Disposition Patient Disposition: Home, Self-Care Condition: Good Prescriptions Prescriptions: New prednisone 10 mg tablet 10 mg PO DAILY Qty: 5 0RF No Action aspirin [Adult Low Dose Aspirin] 81 mg tablet,delayed release (DR/EC) 81 mg PO DAILY gabapentin 600 mg tablet 600 mg PO HS theophylline 300 mg capsule,extended release 24hr 300 mg PO BID glipizide 5 mg tablet 5 mg PO QPMWITHMEAL montelukast 10 mg tablet 10 mg PO DAILY 90 Days Qty: 90 3RF albuterol sulfate 90 mcg/actuation HFA aerosol inhaler 2 inh inhalation Q6H PRN (Reason: shortness of breath or wheezing) 90 Days Qty: 8.5 3RF fluticasone furoate-vilanterol [Breo Ellipta] 200-25 mcg/dose blister with device See Rx Instructions .ROUTE .COMPLEX Qty: 60 0RF Dose Instruction: Inhale 1 puff by mouth once daily Rx Instructions: Inhale 1 puff by mouth once daily Jardiance 25 mg tablet 25 mg PO AM glipizide 10 mg tablet 10 mg PO DAILYDM prednisone 5 mg tablet 5 mg PO DAILY 30 Days Qty: 30 0RF prednisone 1 mg tablet See Rx Instructions .ROUTE .COMPLEX Patient Comments: TAKE 4 TABLETS BY MOUTH EACH MORNING FOR BREATHING DIRECTED FOR 30 DAYS Rx Instructions: TAKE 4 TABLETS BY MOUTH EACH MORNING FOR BREATHING DIRECTED FOR 30 DAYS Referrals Follow up/Referrals: Camden Hernandez MD [Primary Care Provider] - See instructions Activity Restrictions/Add. Instructions Additional Instructions/Restrictions: Follow up with Dr Hernandez next week Return to ER if lethargy, weakness, loss of consciousness, low BP, etc Clinical Impressions Clinical Impression: Fatigue Instructions Patient Instructions: DI for Addisons Disease Discharge ED Provider: Ioana Trujillo [facility] [place] HPI General Stated complaint: weakness jittery chills Time Seen by Provider: 10/02/23 13:30 History of Present Illness Provider Complaint: Patient presents with fatigue. States he has low cortisol and sometimes when it is really low he needs extra prednisone. He has a history of asthma, as well as diabetes. Fell asleep in the truck at work today so boss told him to come in. Onset (ago): hour(s) (6) Relieving factors: none Exacerbating factors: none Treatments prior to arrival: none Related Data Home Medications Medication Instructions Recorded Confirmed aspirin 81 mg tablet,delayed 81 mg PO DAILY heart health 12/28/17 10/02/23 release (Adult Low Dose Aspirin) gabapentin 600 mg tablet 600 mg PO HS NEUROPATHY 12/28/17 10/02/23 theophylline 300 mg 300 mg PO BID COPD 12/28/17 07/15/22 capsule,extended release 24 hr glipizide 5 mg tablet 5 mg PO QPMWITHMEAL Diabetes 11/18/21 07/15/22 empagliflozin 25 mg tablet 25 mg PO AM Diabetes 06/13/22 10/02/23 (Jardiance) glipizide 10 mg tablet 10 mg PO DAILYDM Diabetes 06/13/22 07/15/22 prednisone 1 mg tablet See Rx Instructions .Route .COMPLEX 10/02/23 10/02/23 Previous Rx's Medication Instructions Recorded prednisone 5 mg tablet 5 mg PO DAILY Infection 30 days 06/14/22 #30 tabs montelukast 10 mg tablet 10 mg PO DAILY 90 days #90 tabs 06/25/22 albuterol sulfate 90 mcg/actuation 2 inh inhalation Q6H PRN shortness 07/14/22 aerosol inhaler of breath or wheezing 90 days #8.5 grams Breo Ellipta 200 mcg-25 mcg/dose See Rx Instructions .Route 07/14/23 powder for inhalation (fluticasone .COMPLEX #60 ea furoate-vilanterol) prednisone 10 mg tablet 10 mg PO DAILY #5 tabs 10/02/23 Allergies Allergy/AdvReac Type Severity Reaction Status Date / Time Penicillins Allergy Mild Verified 10/02/23 13:39 [facility] Disclaimer: The information contained in this section may have been updated after the patient was seen, as this information can be updated by other users. Medical History (Updated 10/02/23 @ 13:54 by BRIANNA Urban) Asthma Asthma CAD (coronary artery disease) COPD (chronic obstructive pulmonary disease) Diabetes Dyspnea on exertion Eosinophilia Multiple lung nodules on CT Screening for lung cancer Severe persistent asthma Smoking greater than 30 pack years Tobacco abuse counseling Tobacco abuse disorder Surgical History H/O sinus surgery History of colonoscopy History of heart artery stent Percutaneous transluminal coronary angioplasty status Family History Other Coronary artery disease Social History Smoking Status: Current every day smoker tobacco type: cigarettes packs per day: 2 alcohol intake: never substance use type: denies use current occupational status: employed Travel in the last 8 weeks: None household members: spouse housing: house caffeine: Yes ROS Obtained: Yes Systems reviewed as appropriate & no additional complaints except as documented Constitutional Constitutional: Reports fatigue, Denies fever(s), Denies headache(s) and Reports other (Lightheadedness) ENT Ears, Nose, Mouth, and Throat: Denies headache(s), Denies nasal discharge and Denies sore throat Cardiovascular Cardiovascular: Denies chest pain Respiratory Respiratory: Reports shortness of breath and Reports cough Gastrointestinal Gastrointestingal: Denies abdominal pain, constipation, diarrhea or vomiting Genitourinary Male Genitourinary: Denies difficulty urinating and Denies flank pain Musculoskeletal Musculoskeletal: Denies numbness Neurologic Neurologic: Denies headache(s) and Denies numbness Endocrine Endocrine: Reports fatigue Physical Exam General General appearance: alert and in no apparent distress Comment: Pulse ox 94% on 6 L. Speaking in normal sentences. Head Head exam: atraumatic and normocephalic Eye Eye exam: Present normal appearance and EOMI ENT ENT exam: Present mucous membranes moist Neck Neck exam: Present normal inspection and trachea midline Chest Chest inspection: Present normal inspection and symmetric chest wall rise Respiratory Respiratory exam: Present other (Rhonchi bilaterally); Absent respiratory distress Cardiovascular Cardiovascular exam: Present regular rate, normal rhythm and normal heart sounds Abdominal Exam Abdominal exam: Present soft and normal bowel sounds; Absent distention, tenderness, guarding, rebound or rigidity Extremities Exam Extremities exam: Present normal inspection Neurological Exam Neurological exam: Present alert and oriented X3 Psychiatric Psychiatric exam: Present normal affect and normal mood Skin Skin exam: Present warm and dry Medical Decision Making Medical Records Medical records reviewed: Yes I reviewed the patient's medical records. Javier Inquiry Pt receiving controlled substance: No Medical Decision Narrative: History of low cortisol PCP usually gives extra prednisone No warning signs of adrenal crisis
[2023-10-02 13:05] VITALS: BP 117/78; PULSE 80; RESP 16; TEMP 36.9; O2SAT 98; BMI 18.8
[2023-10-02 14:16] VITALS: BP 117/78; PULSE 80; RESP 16; TEMP 36.9; O2SAT 98
== END 2023-10-02 14:16 | disposition home or self-care (01) ==
PROVIDERS: Emergency Provider Physician Assistant; PCP Internal Medicine
DX: R53.83 Other fatigue (principal); F17.210 Nicotine dependence, cigarettes, uncomplicated; J44.9 Chronic obstructive pulmonary disease, unspecified; E11.9 Type 2 diabetes mellitus without complications; I11.9 Hypertensive heart disease without heart failure; I25.10 Atherosclerotic heart disease of native coronary artery without angina pectoris; Z79.84 Long term (current) use of oral hypoglycemic drugs
CPT/HCPCS: 99204; 99212; G0463

== ENCOUNTER 2024-01-29 10:17 | Outpatient (CLI) | payer BC, SELFPAY ==
[2024-01-29 17:44] LABS: Basophils # 0.1 K/mm3 (0-0.2); Basophils % 1.1 % (0.1-2.0); Eosinophils # 1.4 K/mm3 (0.0-0.4); Eosinophils % 11.6 % (0.1-12.0); Hematocrit 53.1 % (42.0-52.0); Hemoglobin 17.5 g/dL (14.1-18.0); Lymphocytes # 3.4 K/mm3 (0.7-4.5); Lymphocytes % 28.1 % (10-50); Mean Corpuscular Hemoglobin 29.4 pg (27.0-31.2); Mean Corpuscular Volume 89.1 fl (80-94); Mean Platelet Volume 8.6 fl (7.4-10.4); Monocytes # 0.8 K/mm3 (0.1-1.0); Monocytes % 6.6 % (1.7-9.3); Neutrophils # 6.3 K/mm3 (1.8-7.8); Neutrophils % 52.6 % (37.0-80.0); Platelet Count 197 K/mm3 (142-424); Red Blood Count 5.96 M/mm3 (4.60-6.20); Red Cell Distribution Width 14.4 % (11.5-17.5)
[2024-01-29 17:47] LABS: Alanine Aminotransferase 20 U/L (12-78); Albumin Level 4.5 g/dl (3.5-5.0); Albumin/Globulin Ratio 1.6 (1.1-1.8); Alkaline Phosphatase 84 U/L (38-126); Anion Gap 14.1 mEq/L (5-15); Aspartate Amino Transferase 27 U/L (17-59); Bilirubin,Total 0.5 mg/dl (0.2-1.3); Blood Urea Nitrogen 16 mg/dl (9-20); Calcium 9.9 mg/dl (8.4-10.2); Carbon Dioxide 26 mmol/L (22.0-30.0); Chloride 103 mmol/L (98-107); Chol/HDL Ratio 6.8 (1-3.5); Cholesterol 203 mg/dl (140-200); Estimated Glomerular Filt Rate 76 ml/min (>60); GFR (African American) 93 ML/MIN (>60); Globulin 2.8 g/dL (1.3-3.2); Glucose 90 mg/dl (74-100); HDL Cholesterol 30 mg/dl (40-60); Potassium 4.1 mmoL/L (3.5-5.1); Sodium 139 mmol/L (136-145); Total Protein,Serum 7.3 g/dl (6.3-8.2); Triglycerides 333 mg/dl (30-150); VLDL Cholesterol 67 mg/dL (0-40)
[2024-01-29 17:58] LABS: Direct LDL Cholesterol 114.24 mg/dL (100-129)
[2024-01-29 18:17] LABS: Prostate Specific Ag Screen 1.4 ng/ml (0.0-4.0)
== END 2024-01-29 23:59 | disposition home or self-care (01) ==
LOC: LAB.DROPOF 02-01 10:17
PROVIDERS: PCP Internal Medicine; Visit Provider Internal Medicine
DX: Z12.5 Encounter for screening for malignant neoplasm of prostate (principal); E11.49 Type 2 diabetes mellitus with other diabetic neurological complication; E11.59 Type 2 diabetes mellitus with other circulatory complications; I25.10 Atherosclerotic heart disease of native coronary artery without angina pectoris; E78.5 Hyperlipidemia, unspecified; Z79.84 Long term (current) use of oral hypoglycemic drugs; J44.9 Chronic obstructive pulmonary disease, unspecified; F17.210 Nicotine dependence, cigarettes, uncomplicated; J45.998 Other asthma; I11.9 Hypertensive heart disease without heart failure
CPT/HCPCS: 80053; 80061; 85025; G0103

== ENCOUNTER 2024-07-30 08:54 | Outpatient (CLI) | payer BC, SELFPAY ==
[2024-07-30 09:58] LABS: Hemoglobin A1C 6.3 % (4.0-6.0)
[2024-07-30 10:57] LABS: Albumin Level 3.7 g/dl (3.5-5.0); Chloride 108 mmol/L (98-107)
[2024-07-30 10:58] LABS: Potassium 4.4 mmoL/L (3.5-5.1); Sodium 138 mmol/L (136-145)
[2024-07-30 11:00] LABS: Alanine Aminotransferase 23 U/L (12-78); Albumin/Globulin Ratio 1.4 (1.1-1.8); Alkaline Phosphatase 133 U/L (38-126); Anion Gap 13.4 mEq/L (5-15); Aspartate Amino Transferase 27 U/L (17-59); Bilirubin,Total 1.1 mg/dl (0.2-1.3); Blood Urea Nitrogen 15 mg/dl (9-20); Carbon Dioxide 21 mmol/L (22.0-30.0); Cholesterol 137 mg/dl (140-200); Estimated Glomerular Filt Rate 62 ml/min (>60); GFR (African American) 75 ML/MIN (>60); Globulin 2.6 g/dL (1.3-3.2); Total Protein,Serum 6.3 g/dl (6.3-8.2); Triglycerides 149 mg/dl (30-150); VLDL Cholesterol 30 mg/dL (0-40)
[2024-07-30 11:01] LABS: Calcium 8.7 mg/dl (8.4-10.2); Chol/HDL Ratio 5.3 (1-3.5); Glucose 125 mg/dl (74-100); HDL Cholesterol 26 mg/dl (40-60)
[2024-07-30 11:01] LABS: Creatinine,Urine Random 121 mg/dL (Not Estab.)
[2024-07-30 11:04] LABS: Direct LDL Cholesterol 81.92 mg/dL (100-129)
== END 2024-07-30 23:59 | disposition home or self-care (01) ==
LOC: LAB 08:55
PROVIDERS: PCP Internal Medicine; Visit Provider Internal Medicine
DX: J44.9 Chronic obstructive pulmonary disease, unspecified (principal); E11.49 Type 2 diabetes mellitus with other diabetic neurological complication; E11.59 Type 2 diabetes mellitus with other circulatory complications; I25.10 Atherosclerotic heart disease of native coronary artery without angina pectoris; E78.5 Hyperlipidemia, unspecified; Z72.0 Tobacco use; Z79.84 Long term (current) use of oral hypoglycemic drugs
CPT/HCPCS: 36415; 80053; 80061; 82043; 82570; 83036

== ENCOUNTER 2025-01-28 07:48 | Outpatient (CLI) | payer BC, SELFPAY ==
[2025-01-28 08:41] LABS: Basophils # 0.1 K/mm3 (0-0.2); Basophils % 0.8 % (0.1-2.0); Eosinophils # 0.4 Kmm3 (0.0-0.4); Hematocrit 55.2 % (42.0-52.0); Hemoglobin 17.9 g/dL (14.1-18.0); Immature Granulocytes # 0.08 10^3uL; Immature Granulocytes % 0.6 %; Lymphocytes # 2.2 K/mm3 (0.7-4.5); Lymphocytes % 16.3 % (10-50); Mean Corpuscular HGB Conc 32.4 g/dL (31.8-35.4); Mean Corpuscular Volume 86.3 fl (80-94); Mean Platelet Volume 10.5 fl (7.4-10.4); Monocytes # 0.7 K/mm3 (0.1-1.0); Monocytes % 5.5 % (1.7-9.3); Neutrophils % 73.8 % (37.0-80.0); Nucleated Red Blood Cells # 0 10^3/uL; Nucleated Red Blood Cells % 0 %; Platelet Count 168 K/mm3 (142-424); Red Cell Distribution Width 14.3 % (11.5-17.5); Red Cell Distribution Width-SD 43.5 fL; White Blood Count 13.5 K/mm3 (4.8-10.8)
[2025-01-28 10:05] LABS: Alanine Aminotransferase 13 U/L (12-78); Albumin Level 4.2 g/dl (3.5-5.0); Albumin/Globulin Ratio 1.6 (1.1-1.8); Alkaline Phosphatase 82 U/L (38-126); Anion Gap 9.3 mEq/L (5-15); Aspartate Amino Transferase 21 U/L (17-59); Bilirubin,Total 0.7 mg/dl (0.2-1.3); Blood Urea Nitrogen 14 mg/dl (9-20); Calcium 9.1 mg/dl (8.4-10.2); Carbon Dioxide 27 mmol/L (22.0-30.0); Chloride 106 mmol/L (98-107); Chol/HDL Ratio 5.7 (1-3.5); Cholesterol 177 mg/dl (140-200); Estimated Glomerular Filt Rate 76 ml/min (>60); GFR (African American) 92 ML/MIN (>60); Globulin 2.7 g/dL (1.3-3.2); Glucose 93 mg/dl (74-100); HDL Cholesterol 31 mg/dl (40-60); Potassium 4.3 mmoL/L (3.5-5.1); Sodium 138 mmol/L (136-145); Total Protein,Serum 6.9 g/dl (6.3-8.2); Triglycerides 239 mg/dl (30-150); VLDL Cholesterol 48 mg/dL (0-40)
[2025-01-28 10:15] LABS: Direct LDL Cholesterol 100.28 mg/dL (100-129)
[2025-01-28 10:44] LABS: Hemoglobin A1C 6.2 % (4.0-6.0)
== END 2025-01-28 23:59 | disposition home or self-care (01) ==
LOC: LAB 07:49
PROVIDERS: PCP Internal Medicine; Visit Provider Internal Medicine
DX: J44.89 Other specified chronic obstructive pulmonary disease (principal); E11.49 Type 2 diabetes mellitus with other diabetic neurological complication; E11.59 Type 2 diabetes mellitus with other circulatory complications; R53.83 Other fatigue; Z72.0 Tobacco use; I10 Essential (primary) hypertension; E78.5 Hyperlipidemia, unspecified; I25.10 Atherosclerotic heart disease of native coronary artery without angina pectoris
CPT/HCPCS: 36415; 80053; 80061; 83036; 85025

== ENCOUNTER → 2025-03-28 08:08 | Outpatient (CLI) | payer BC, SELFPAY | LOC: SL 08:09 | PROVIDERS: PCP Internal Medicine; Visit Provider Internal Medicine | DX: J44.9 Chronic obstructive pulmonary disease, unspecified; R06.02 Shortness of breath | CPT/HCPCS: 94762 ==

== ENCOUNTER 2025-07-29 07:41 | Outpatient (CLI) | payer BC, SELFPAY ==
--- OUTSIDE RECORDS SUMMARY | 2025-07-29 07:43 | XMS_ITS | Data Portability ---
Author Organization [facility] Address [address] [place] [address] Assessment Encounter Date Assessment Date Assessment LastModified by Organization Details LastModified Time 03/10/2019 03/10/2019 Mr. Herrera is a 53-year-old gentleman with a significant L5-S1 spondylolisthe sis. He has severe neural foraminal stenosis, left worse than right. I think he is symptomatic from this, but it is odd that most of his pain is just distal in his lower extremities. I'm going to send him for standing x-rays and EMG and nerve conduction studies. I will see him back and we can discuss surgery further at that time. [email or web address] Not available 03/10/2019 14:29:12 Plan of Treatment Reminders Order Date Submit Date Provider Last Modified By Organization Details Last Modified Time Details Appointments None record ed. Lab None record ed. Referral None record ed. Procedures None record ed. Surgeries None record ed. Imaging None record ed. Medication Orders None record ed. Patient TargetsNo targets recorded. Patient InstructionsNo instructions recorded. Reason for Referral None Reported. Procedures Surgical History Date Name Laterality Status Provider Name and Address Organization Details Recorded Time placement of stent in cardiac conduit completed Kimberley Calle [facility] 03/10/2019 14:08:43 tonsillectomy completed Kimberleychelsi Calle [facility] 03/10/2019 14:09:16 Imaging Results None recorded. Procedure Notes None recorded. Medical Equipment None Reported. Allergies Allergen ID Allergen Name Allergen Category Reaction Reaction Severity Criticality Documentation Date Start Date Code Code System Note Provider Name and Address Organization Details Recorded Time [id number] Product containin g penicilli n (product) medicatio n Not available Not available Not available 03/10/2019 [id number] SNOMED Kimberley Calle [facility] 9 14:11:03 Medications Name Sig Start Date Stop Date Status Note LastModified by Organization Details LastModified Time carvedilol 25 mg tablet Take 1 tablet twice a day by oral route. active Not Available Not Available No t Available Neurontin 600 mg tablet Take 1 tablet 3 times a day by oral route. active Not Available Not Available No t Available theophylline ER 300 mg tablet,extende d release,12 hr Take 1 tablet every 12 hours by oral route. active Not Available Not Available No t Available furosemide 20 mg tablet Take 1 tablet every day by oral route. active Not Available Not Available No t Available glipizide 5 mg tablet Take 1 tablet twice a day by oral route. active Not Available Not Available No t Available ezetimibe 10 mg tablet Take 1 tablet every day by oral route. active Not Available Not Available No t Available aspirin active Not Available Not Avail able Not Available prednisone active Not Available Not Av ailable Not Available Vitals Date Recorded Body height Body mass index (BMI) Body weight Systolic And Diastolic Provider Name and Address Organization Details Last Updated DateTime 03/10/2019 175.26 cm 25.1 kg/m2 49159.7 g 122/82 mm[Hg] Kimberley Calle [facility] 03/10/2019 14:11:22 Social History Question Answer Notes LastModified by Organizat ion Details LastModified Time Tobacco Smoking Status Current Every Day Smoker Kimberley Calle [facility] 03/10/2019 14:08:16 What Was The Date Of Your Most Recent Tobacco Screening? 03/10/2019 Information n ot available 10/11/2019 Sex: Unknown Functional Status None recorded. Mental Status None recorded. Family History Relationship Description Onset Age of this Age Resolved Age Notes LastModified by Organization Details LastModified Time Unspecified Relation Malignant neoplastic disease [email or web address] Not available 03/10 14:08:20 Unspecified Relation Diabetes mellitus [email or web address] Not available 03/10 14:08:24 Unspecified Relation Myocardial infarction [email or web address] Not available 02/21 14:08:31 Medical History No medical history recorded. Past Encounters Encounter ID Performer Location Encounter Start Date Encounter Closed Date Diagnosis/Indication Diagnosis SNOMED-CT Code Diagnosis ICD10 Code Diagnosis IMO Codes Diagnosis Note [id number] MANJULA LEONARDO MD [facility] [address] [place] [address] 03/10/2019 13:48:44 03/15/2019 11:14:26 Lumbar spondylolisthesis [id number] 48820 M43.16 Health Concerns Section Related Observation LastModified by Organization Detai ls LastModified Time None Recorded Concern Status LastModified by Organization Details LastModified Time None Recorded Advance Directives Directive None Recorded Payers Insurance Date Sequence Insurance Name Policy Number Policy Ramírez Covered Member ID Ramírez Member ID Guarantor Name 07/18/2020 1 [facility] [id number] Wilbert Herrera [id number] Wilbert Herrera Notes Date Note Type Note Provider Name and Address Organization Details Recorded Time 03/10/2019 text/html Mr. Herrera is a 53-year-old gentleman presenting with 2 years of increasing distal lower extremity pain. He describes 4 out of 10 pain which is burning with tightness. The pain is intermittent. It is particularly bad when trying to walk on concrete. He denies much numbness, tingling or weakness. No loss of bowel or bladder control. He denies pain radiating in to his hips and from his low back. He is been on gabapentin 600 mg at night. MANJULA LEONARDO MD [address] [place] [address], [id number], [facility] 03/10/2019 14:29:21
[2025-07-29 08:23] LABS: Hematocrit 55.2 % (42.0-52.0); Immature Granulocytes % 0.4 %; Mean Corpuscular HGB Conc 34.2 g/dL (31.8-35.4); Mean Corpuscular Hemoglobin 29.3 pg (27.0-31.2); Mean Corpuscular Volume 85.4 fl (80-94); Nucleated Red Blood Cells % 0 %; Platelet Count 175 K/mm3 (142-424); Red Blood Count 6.46 M/mm3 (4.60-6.20); Red Cell Distribution Width-SD 40.5 fL; White Blood Count 12.8 K/mm3 (4.8-10.8)
[2025-07-29 09:43] LABS: Alanine Aminotransferase 22 U/L (12-78); Albumin Level 4.4 g/dl (3.5-5.0); Albumin/Globulin Ratio 1.5 (1.1-1.8); Alkaline Phosphatase 88 U/L (38-126); Anion Gap 11.6 mEq/L (5-15); Aspartate Amino Transferase 26 U/L (17-59); Bilirubin,Total 0.9 mg/dl (0.2-1.3); Blood Urea Nitrogen 16 mg/dl (9-20); Calcium 9.5 mg/dl (8.4-10.2); Carbon Dioxide 23 mmol/L (22.0-30.0); Chloride 104 mmol/L (98-107); Cholesterol 197 mg/dl (140-200); Creatinine,Serum 1.00 mg/dl (0.66-1.25); Estimated Glomerular Filt Rate 76 ml/min (>60); GFR (African American) 92 ML/MIN (>60); Globulin 3.0 g/dL (1.3-3.2); Glucose 112 mg/dl (74-100); HDL Cholesterol 32 mg/dl (40-60); Potassium 4.6 mmoL/L (3.5-5.1); Sodium 134 mmol/L (136-145); Total Protein,Serum 7.4 g/dl (6.3-8.2); Triglycerides 252 mg/dl (30-150)
[2025-07-29 10:54] LABS: Hemoglobin 18.9 g/dL (14.1-18.0)
[2025-07-29 11:45] LABS: Hemoglobin A1C 7.5 % (4.0-6.0)
== END 2025-07-29 23:59 | disposition home or self-care (01) ==
LOC: LAB 07:42
PROVIDERS: PCP Internal Medicine; Visit Provider Internal Medicine
DX: E11.49 Type 2 diabetes mellitus with other diabetic neurological complication (principal); I10 Essential (primary) hypertension; E11.59 Type 2 diabetes mellitus with other circulatory complications; E78.49 Other hyperlipidemia
CPT/HCPCS: 36415; 80053; 80061; 82043; 82570; 83036; 85025